=== PATIENT | female | born 1980 | race Caucasian/White ===

== ENCOUNTER → 2023-10-26 14:57 | Outpatient (REF) | payer OTHER, SELFPAY | LOC: HWWDC 14:57 | PROVIDERS: ATTENDING PHYSICIAN Nurse Practitioner Adult Health; FAMILY PHYSICIAN Nurse Practitioner Family | DX: Z12.31 Encounter for screening mammogram for malignant neoplasm of breast (principal) | CPT/HCPCS: 77063; 77067 ==

== ENCOUNTER 2023-11-15 09:12 | Emergency (ER) | payer OTHER, SELFPAY ==
[2023-11-15 09:14] VITALS: BP 151/95
--- NOTE | 2023-11-15 09:39 | ED.GENMED ---
History of Present Illness
General
Chief Complaint: Musculo-Skeletal Complaint
Source: patient
Time Seen by Provider: 11/15/23 09:34
Travel History
Have you had any contact with someone who has COVID-19?: No
Do you have any symptoms of coronavirus? Fever > 100 degrees, chills, cough, shortness of breath, sore throat, loss of taste or smell, muscle aches, or headache?: No
History of Present Illness
History of Present Illness:
43-year-old female with past medical history of lupus presenting emergency department for evaluation after she was walking on her stairs when she got startled by a spider, stepped backwards and felt a pulling sensation in her left gastrocnemius and
has had pain and difficulty ambulating since. Patient was concern for possible Achilles tendon injury and due to the difficulty ambulating decided to come to the ER for further evaluation. She denies any previous history of injury. no other
concerns at this time.
Past History
Past History
ED Past Medical History: Other (autoimmune problems, currently being worked up for scleroderma), Other (Frequent UTIs) and Other (ADHD, anxiety, Raynaud's)
ED Past Surgical History: Other ([place] teeth)
Social History
Tobacco: Non-smoker
Alcohol: Occasional
Drug: None
Personal:
Living: with family
Employment: Employed
Family History
Family History: Other
Review of Systems
Review of Systems
All Other Systems: ROS reviewed and negative except as documented in HPI and ROS
Phy Exam
Physical Exam
Physical Exam:
GENERAL: Alert , in no apparent distress
EYE: conjunctiva clear
Head: Normocephalic atraumatic
NECK: Supple,
ENT: mmm.
LUNGS: no acute respiratory distress
NEUROLOGICAL: Alert and oriented
SKIN: Warm and dry, skin intact.
MUSCULOSKELETAL: Left lower extremity: No obvious deformity, erythema, edema, ecchymosis, abrasions or lacerations. Patient is able to plantar and dorsiflex but does have increased pain when plantar flexing. She has tenderness over the mid
gastrocnemius to palpation. Easily palpable pedal and tibial pulses. Cap refill less than 2 seconds and sensation is grossly intact to light touch. Calcaneal tendon is intact and without any laxity
PSYCH: Normal and appropriate interaction.
Scores
Heart Failure Risk
Heart Failure Risk Score: Not Applicable
Heart Score for Chest Pain Patients
STEMI patient?: Not applicable
Withdrawal Assessment of Alcohol
Withdrawal Assessment Completed?: Not applicable
Course
Orders/Labs/Results
Orders:
Orders
11/15/23 09:39
Matias Wrap Left-Treatment ONCE
Crutches-Treatment ONCE
Ibuprofen [Motrin] 600 mg PO NOW STA
Vital Signs
Initial and Last Documented VS:
Initial Vital Signs
Temp Pulse Resp BP Pulse Ox
98.4 F 94 16 151/95 98
11/15/23 09:14 11/15/23 09:14 11/15/23 09:14 11/15/23 09:14 11/15/23 09:14
Last Documented Vital Signs
Temp Pulse Resp BP Pulse Ox
98.4 F 94 16 151/95 98
11/15/23 09:14 11/15/23 09:14 11/15/23 09:14 11/15/23 09:14 11/15/23 09:14
MDM/Problems Addressed
Differential Diagnosis Includes:
Gastrocnemius strain, calcaneal tendon rupture, no concern for DVT
MDM/Problems Addressed:
43-year-old female present emergency department for evaluation following injury to her left calf while walking on stairs. Symptoms and presentation is most consistent with a strain of the musculature of the calf. I did advise the patient to take
NSAIDs as needed for pain, will wrap with an Matias wrap for compression, ice and elevation also advised. Information for orthopedics to be provided. Patient was also provided with crutches to help her ambulate easier.
*Pulse Oximetry
Patient hypoxic: no
*Critical Care Note
Total Time (30-74mins, 75-104mins- exclusive of procedures): Not Applicable
ED Attending Note
-
Portions of this chart may have been created with voice recognition software.� Occasional wrong word or��sound alike� substitutions may have occurred due to the inherent limitations of voice recognition software.
Discharge Plan
Departure
Patient Disposition: Home (Routine Discharge)
Date of Disposition: 11/15/23
Time of Disposition: 09:39
Patient with high blood pressure during this ER visit?: Yes
Discharge Problem:
Strain of left calf muscle
Instructions: Lower Extremity Muscle Strain (DC)
Prescriptions:
No Action
Lactobac 2-Bifido 1-S. therm [High Potency Probiotic] 1 CAP capsule
1 cap PO DAILY
Cbd Oil
25 - 30 ml PO HSPRN PRN (Reason: insomnia)
Magnesium
1 tab PO DAILY
ipratropium-albuterol 3 ML solution for nebulization
3 ml inhalation R Q4HPRN PRN (Reason: shortness of breath/wheezing) Qty: 1 0RF
promethazine-codeine 5 ML syrup
5 ml PO Q4HPRN PRN (Reason: severe cough) Qty: 60 0RF
montelukast 10 MG tablet
10 mg PO QPM Qty: 30 0RF
prednisone 10 MG tablet
10 mg PO DAILY Qty: 120 0RF
Rx Instructions:
take 5 tabs (50 mg) daily x 4 days, 40 mg daily x 4 days, 30 mg daily x 4 days, 20 mg daily x 4 days, 10 mg daily x 4 days then stop
benzonatate 100 MG capsule
100 mg PO TID Qty: 21 0RF
budesonide 0.5 MG/2 ML suspension for nebulization
0.5 mg inhalation R BID Qty: 1 0RF
Referrals:
Sherwin Feng MD [Active] - (Ortho)
Interventions
Interventions:
*Risk Screen - Suicide Last Done: 11/15/23 09:40
*General Assessment Last Done: 11/15/23 09:40
*Neglect/Abuse Screening Last Done: 11/15/23 09:40
ED- Fall Risk Assessment Last Done: 11/15/23 09:40
*ED COVID-19 Vaccine History Last Done: 11/15/23 09:14
ED-Musculoskeletal Assessment Last Done: 11/15/23 09:40
[2023-11-15] MEDS: MOTRIN 600 MG PO (09:51)
--- NOTE | 2023-11-15 10:00 | EDRN ---
Reviewed discharge instructions with patient. Verbalized understanding. Demonstrated proper use of crutches.
[2023-11-15 10:12] VITALS: BP 151/93
== END 2023-11-15 10:10 | disposition home or self-care (01) ==
LOC: EMR 09:12
PROVIDERS: EMERGENCY PHYSICIAN Emergency Medicine; FAMILY PHYSICIAN Nurse Practitioner Family
DX: S86.112A Strain of other muscle(s) and tendon(s) of posterior muscle group at lower leg level, left leg, initial encounter (principal); Y93.01 Activity, walking, marching and hiking; Z87.440 Personal history of urinary (tract) infections
CPT/HCPCS: 99282

== ENCOUNTER → 2024-06-16 15:14 | Outpatient (REF) | payer OTHER, SELFPAY | LOC: HWRAD 15:14 | PROVIDERS: ATTENDING PHYSICIAN Physician Assistant; FAMILY PHYSICIAN Nurse Practitioner Family | DX: J32.8 Other chronic sinusitis (principal) | CPT/HCPCS: 70486 ==

== ENCOUNTER → 2024-07-02 15:48 | Outpatient (REF) | payer OTHER, SELFPAY | LOC: HWRAD 15:48 | PROVIDERS: ATTENDING PHYSICIAN Nurse Practitioner Family | DX: J40 Bronchitis, not specified as acute or chronic (principal) | CPT/HCPCS: 71046 ==

== ENCOUNTER → 2024-07-11 15:48 | Outpatient (REF) | payer OTHER, SELFPAY | LOC: HWRCS 15:48 | PROVIDERS: ATTENDING PHYSICIAN Nurse Practitioner Family | DX: R07.89 Other chest pain (principal); R00.0 Tachycardia, unspecified | CPT/HCPCS: 93306 ==

== ENCOUNTER → 2024-08-13 16:31 | Outpatient (REF) | payer OTHER, SELFPAY | LOC: HWRAD 16:31 | PROVIDERS: ATTENDING PHYSICIAN Nurse Practitioner Family | DX: R05.1 Acute cough (principal) | CPT/HCPCS: 71046 ==

== ENCOUNTER 2024-08-25 15:42 | Inpatient (IN) | payer OTHER, SELFPAY ==
[2024-08-25] VITALS (13 sets, daily range): BP systolic 124–167; BP diastolic 66–106; BMI 31.1
[2024-08-25] MEDS: DECADRON 10 MG IV ×2 (08:38→13:49)
[2024-08-25 08:46] LABS: % Basophils 0.3 % (0-2); % Eosinophils 6.5 % (0-6); % Immature Granulocytes 0.3 % (0-0.5); % Lymphocytes 13.1 % (20.5-51.1); % Monocytes 11.8 % (1.7-9.3); Absolute Eosinophils 0.4 10^3/uL (0-0.7); Absolute Lymphocytes 0.8 10^3/uL (1.2-3.4); Absolute Monocytes 0.7 10^3/uL (0.1-0.6); Absolute Neutrophils 4.3 10^3/uL (1.4-6.5); Hematocrit 34.8 % (37.0-47.0); Hemoglobin 11.7 g/dL (12.0-16.0); Mean Corp Hgb Conc. 33.6 g/dL (33.0-37.0); Mean Corpuscular Hgb 30.9 pg (27.0-31.0); Mean Corpuscular Volume 91.8 fL (81.0-99.0); Mean Platelet Volume 8.7 fL (7.4-10.4); Nucleated Red Blood Cells % 0 %; Platelet Count 216 10^3/uL (130-400); Red Blood Cell Count 3.79 10^6/uL (4.20-5.40); Red Cell Dist. Width 12.9 % (11.5-14.5); White Blood Cell Count 6.3 10^3/uL (4.8-10.8)
--- NOTE | 2024-08-25 09:07 | ED.GENMED ---
History of Present Illness
General
Chief Complaint: Throat Problem
Source: patient
Exam Limitations: none
Time Seen by Provider: 08/25/24 08:11
Nursing documentation reviewed up to this point in time: agreed with
History of Present Illness
History of Present Illness:
44-year-old female past medical history of lupus scleroderma autoimmune disorder presenting to the emergency department today with concerns of left-sided jaw and neck swelling difficulty swallowing over the past day or so has had some ongoing
swelling to the lymph nodes of the left side of the neck has been on an intermittent antibiotics most recently until 2 weeks ago on doxycycline via ENT. Denies any chest pain shortness of breath currently, no nausea vomiting or fevers today.
Past History
Past History
ED Past Medical History: Other (autoimmune problems, currently being worked up for scleroderma), Other (Frequent UTIs) and Other (ADHD, anxiety, Raynaud's)
ED Past Surgical History: Other ([place] teeth)
Social History
Tobacco: Non-smoker
Alcohol: Occasional
Drug: None
Personal:
Living: with family
Employment: Employed
Family History
Family History: Other
Review of Systems
Review of Systems
Allergies reviewed?: Yes
All Other Systems: ROS reviewed and negative except as documented in HPI and ROS
Phy Exam
Physical Exam
Physical Exam:
GENERAL: Alert , in no apparent distress
EYE: pupils equal and reactive
NECK: Supple, no significant adenopathy.
ENT: Swelling to the preauricular lymph node and the tonsillar lymph node some swelling below the left jaw. Posterior pharynx without acute abnormalities o/p clr, mmm.
CARDIAC: Regular rate and rhythm .
LUNGS: Clear breath sounds bilaterally, no acute respiratory distress, no wheezes/rales/rhonchi
ABDOMEN: Soft, without focal tenderness, no r/g, no cvat
NEUROLOGICAL: Alert and oriented, no focal neuro deficits
SKIN: Warm and dry, skin intact.
MUSCULOSKELETAL: No edema, well perfused.
PSYCH: Normal and appropriate interaction.
Course
Orders/Labs/Results
Orders:
Orders
08/25/24 08:26
CT Neck With Iv Contrast Urgent
Comment:
Reason For Exam: neck jaw swelling
08/25/24 08:27
Dexamethasone Sod Phosphate [Decadron] 10 mg IV NOW STA
08/25/24 08:32
Complete Blood Count/With Diff Urgent
Comprehensive Metabolic Panel Urgent
HCG, Serum Qualitative Screen Urgent
Lactic Acid Urgent
08/25/24 08:57
Add On- LAB Urgent
Tests Added?: hcg qual serum
08/25/24 09:10
Ketorolac [Toradol] 30 mg IV NOW STA
08/25/24 12:17
CefTRIAXone [Rocephin] 2,000 mg IV NOW STA
Vancomycin [Vancocin] 1,500 mg 0.9% Sodium Chloride 500 ml [Nss] 500 ml IV NOW
08/25/24 12:45
Sterile Water [Sterile Water For Injection] 20 ml .ROUTE .STK-MED
08/25/24 13:07
Dexamethasone Sod Phosphate [Decadron] 10 mg IV NOW STA
Abnormal Lab Results
08/25/24
08:32
RBC 3.79 L 10^6/uL
(4.20-5.40)
Hgb 11.7 L g/dL
(12.0-16.0)
Hct 34.8 L %
(37.0-47.0)
Absolute Lymphs (auto) 0.8 L 10^3/uL
(1.2-3.4)
Absolute Monos (auto) 0.7 H 10^3/uL
(0.1-0.6)
Lymphocytes % 13.1 L %
(20.5-51.1)
Monocytes % 11.8 H %
(1.7-9.3)
Eosinophils % 6.5 H %
(0-6)
Chloride 108 H mmol/L
(98-107)
Lactic Acid 0.5 L mmol/L
(0.7-2.0)
08/25/24 08:32
08/25/24 08:32
Vital Signs
Initial and Last Documented VS:
Initial Vital Signs
Temp Pulse Resp BP Pulse Ox
98.2 F 98 18 167/106 99
08/25/24 07:31 08/25/24 07:31 08/25/24 07:31 08/25/24 07:31 08/25/24 07:31
Last Documented Vital Signs
Temp Pulse Resp BP Pulse Ox
98.2 F 90 12 146/98 96
08/25/24 07:31 08/25/24 13:00 08/25/24 13:00 08/25/24 13:00 08/25/24 13:00
MDM/Problems Addressed
MDM/Problems Addressed:
44-year-old female presenting to the emergency department today with concerns of swelling discomfort to the left side of her neck and jaw. Worsening over the past few days has had some mild swelling to the area over the past few weeks. Has been
intermittently getting treated with antibiotics up until 2 weeks ago via ENT for different sinus issues. Here CT scan showing possible epiglottitis. Patient currently protecting airway and tolerating secretions. Plan to start IV antibiotics and
steroids. Case was discussed with ENT they will see the patient during admission. Otherwise admitted in stable condition.
*Critical Care Note
Total Time (30-74mins, 75-104mins- exclusive of procedures): Not Applicable
ED Attending Note
-
Portions of this chart may have been created with voice recognition software.� Occasional wrong word or��sound alike� substitutions may have occurred due to the inherent limitations of voice recognition software.
Discharge Plan
Departure
Patient Disposition: Admit
Date of Disposition: 08/25/24
Time of Disposition: 13:10
Admit to: Med/Surg
Admit to doctor: Alexei
Presentation/result/management discussed w/ accepting MD/DO: Hospitalist
Patient with high blood pressure during this ER visit?: No
Condition: Good
Covid-19: Not Applicable
Discharge Problem:
Acute epiglottitis
Prescriptions:
No Action
prednisone 5 mg Tablet
5 mg PO NOON
hydroxychloroquine [Plaquenil] 200 mg Tablet
200 mg PO BID
Referrals:
Arun Kohler CRNP [Family Provider] -
Interventions
Interventions:
*Risk Screen - Suicide Last Done: 08/25/24 07:31
*General Assessment Last Done: 08/25/24 08:41
*Neglect/Abuse Screening Last Done: 08/25/24 07:31
*ED COVID-19 Vaccine History Last Done: 08/25/24 07:31
ED-EENT Assessment Last Done: 08/25/24 08:40
ED- Pulmonary Assessment Last Done: 08/25/24 08:40
Discharge Date and Time
Print Language: SETSWANA
[2024-08-25 09:14] LABS: ALT (SGPT) 10 U/L (0-35); AST (SGOT) 18 U/L (14-36); Albumin 3.6 g/dl (3.5-5.0); Alkaline Phosphatase 54 U/L (38-126); Blood Urea Nitrogen 9 mg/dl (7-17); Calcium 8.7 mg/dl (8.4-10.2); Carbon Dioxide 24 mmol/L (22-30); Chloride 108 mmol/L (98-107); Estimated Creatinine Clearance > 125 ml/min; Glucose 90 mg/dl (70-99); Potassium 3.8 mmol/L (3.5-5.1); Sodium 140 mmol/L (135-145); Total Bilirubin 0.7 mg/dl (0.2-1.3); Total Protein 7.2 g/dl (6.3-8.2); eGFR > 60.00
[2024-08-25 09:15] LABS: Lactic Acid 0.5 mmol/L (0.7-2.0)
[2024-08-25 09:53] LABS: HCG, Serum Qualitative Screen Negative
[2024-08-25] MEDS: ROCEPHIN 2000 MG IV (12:50)
[2024-08-25] MEDS: VANCOCIN 530 MG IV (12:54)
--- NOTE | 2024-08-25 14:02 | HPS.HSE ---
Addendum entered and electronically signed by SHAN Bhatti 08/25/24 16:59:
Patient was seen by ENT at bedside who feels she has viral URI and not epiglottitis
-He wants diet changed from n.p.o. to clears for now
Original Note:
Family Physician
-
Family Physician: SHAN Colindres
Chief Complaint
-
Sore throat x 1 week, right sided chest pain x 6 weeks, URI x 4 months
History of Present Illness
44-year-old female who states since May around she has had upper respiratory symptoms and has been treated for bronchitis with 3 rounds of doxycycline 10-day courses over the past 2 months including Levaquin 3-week dose of which she
finished 2 weeks ago. She was due to have an outpatient CT of her chest 1 week ago but they were unable to obtain an IV. This was due to complaints of 6 weeks of right sternal chest pain. She reports she did have an echo with [facility]
but she did not see a applications engineer manufacturing. She does not have any cardiac family history. She does report history of scleroderma, lupus and possible Srjogens. She reported a fever over the past week with Tmax of 103.7F days ago. She states that is when
she started having difficulty and painful swallowing in the lower part of her esophagus along with swelling submandibular into her neck. She is able to talk without difficulty and swallow own secretions. She reports she has been eating crackers
and drinking thin liquids. Her CT of her neck here showed thickening of the epiglottis suggesting possible epiglottitis with bilateral cervical, submandibular and submental lymphadenopathy. She follows with Dr. Price at [facility].
Medical History
Past Medical History
Past Medical History: Reports Other
Additional Past Medical History:
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
Past Surgical History: Reports Other
Additional Past Surgical History:
[place] teeth extraction
Social History
Tobacco: Non-smoker
Alcohol: Occasional (Patient drinks 3-5 drinks a week beer or whiskey's hours)
Personal:
Living: With Family ( [place])
Employment: Employed
Family History
Family History: Other (No family history CAD mother history of lupus from pneumonia age 57 also had brain tumor from lupus treatment)
Allergies / Home Medications
Allergies reflects when Allergies were last updated in [employer].
Home Medications with original date entered in [employer]
Allergy/Medication List:
Allergies
Allergy/AdvReac Type Severity Reaction Status Date / Time
penicillin V Allergy Severe Rash, Verified 08/25/24 07:35
Swelling,
itching;
tolerated
amoxicillin
Sulfa (Sulfonamide Allergy Hives Verified 08/25/24 07:35
Antibiotics)
doxycycline AdvReac Severe Nausea / Verified 08/25/24 07:35
Vomiting
Home Medications
hydroxychloroquine 200 mg tablet (Plaquenil) 200 mg PO BID 08/25/24
prednisone 5 mg tablet 5 mg PO NOON 08/25/24
Review of Systems
-
History Source: Patient
A 12 point ROS was completed and negative except as noted: Yes
Constitutional: Reports Fever and Chills; Denies Fatigue
EENT: Reports Sore Throat and Other (Odynophagia, swelling submandibular into neck, speech is clear, able to handle own secretions); Denies Mouth Pain, Mouth Swelling or Runny Nose
Respiratory: Reports Trouble Breathing (Chronic cough); Denies Cough
Cardiac: Reports Chest Pain (Right sided sternal pain x 6 weeks); Denies Diaphoresis, Palpitations or Syncope
Abdomen/GI: Denies Abdominal Pain, Nausea, Vomiting, Diarrhea, Constipated, Bloody Stools or Black Stools
: Denies Dysuria, Frequency, Flank Pain, Incontinence, Difficulty Voiding or Urgency
Musculoskeletal: Denies Joint Pain, Joint Swelling or Edema
Skin: Denies Itching or Rash
Neurological: Denies Dizzy, Headache or Weakness
Endocrine: Reports No Symptoms
Hematologic/Lymphatic: Reports No Symptoms
Psych: Reports Calm
Physical Exam
Vital Signs
Vital Signs
Temp Pulse Resp BP Pulse Ox
98.2 F 87 14 146/98 97
08/25/24 07:31 08/25/24 13:45 08/25/24 13:45 08/25/24 13:00 08/25/24 13:45
Physical Exam
General: Comfortable, Conversant and Obese; No Fever or Chills
HEENT: NormoCephalic, Anicteric, Moist mucous membranes, PERRLA, [place] Conjunctivae, No Ptosis, Neck Nontender (Negative nuchal rigidity) and Other (Negative pharyngeal erythema uvula appears normal no swelling patient tolerating own secretions able
to speak without difficulty); No Pharyngeal Erythema
Respiratory: Clear; No Wheezes or Rales
Cardiac: S1/S2 and Regular Rhythm; No Murmur, Rub, Gallop or Peripheral Edema
Breast: Deferred by me
GI: Soft, Non Tender, Non Distended, Normal Bowel Sounds and No Hepatosplenomegaly
Rectal: Deferred by Provider
Genito-urinary: Deferred by me
Musculoskeletal: No Clubbing, No Cyanosis and No Edema
Skin: Warm and Dry; No Rash or Jaundice
Neuro: AO x 3, No Motor Deficits, Nonfocal/grossly intact, No Sensory Deficits and Other (Swelling submandibular into anterior neck); No Slurred Speech, Facial Droop, Tremors or Sedated
Hematologic/Lymphatic: Lymphadenopathy (Anterior cervical chain)
Psych: Calm
Laboratory Results
-
08/25/24 08:32
08/25/24 08:32
Laboratory Results
Lactic Acid 0.5 mmol/L (0.7-2.0) L 08/25/24 08:32
Total Bilirubin 0.7 mg/dl (0.2-1.3) 08/25/24 08:32
AST 18 U/L (14-36) 08/25/24 08:32
ALT 10 U/L (0-35) 08/25/24 08:32
Alkaline Phosphatase 54 U/L (38-126) 08/25/24 08:32
Impression/Plan
-
Impression/plan:
Admit to IMU
#Acute epiglottitis
Afebrile, 98.2F, WBC 6.3
BP 146/98, 97% RA
-Consult ENT-ENT on-call Dr. Jolly was made aware by ER, patient did see Dr. Price in the office
-IV Decadron 10 mg given at 8 AM and 10 mg at 1 PM
-Continue Decadron 4 mg every 12 hours, will add IV Protonix 40 mg daily
-IV Rocephin 2000 mg given in ER will continue Rocephin 1 g daily, IV vancomycin started in ER will continue
-Head of bed elevated to 45 degrees at all times
-Monitor ability to tolerate secretions
-Consult Speech swallow
-N.p.o. sips water and ice chips
-Check strep, COVID, influenza
-IV NSS 100 cc/h
-IV Toradol mild pain, IV morphine moderate/severe pain
-IV Zofran as needed nausea
-As needed Benadryl due to some mild facial and neck hives with vancomycin
-Consult PT/OT/case management consult
-Follow CBC, CMP
CT neck with IV contrast: There is slight thickening of the epiglottis suggesting possible epiglottitis
There is bilateral cervical, submandibular and submental lymphadenopathy
#Ongoing Right sternal chest pain of unclear etiology possibly due to chronic bronchitis/cough musculoskeletal
URI since May completed 3 rounds of 10-day course doxycycline over the past 2 months including Levaquin 3-week course that she finished 2 weeks ago
Had outpatient echo at [facility] 2 weeks ago
-Has prescription for CT of chest as outpatient they were unable to get an IV line 2 days ago
-We will obtain her CT of the chest with contrast tomorrow as she had IV contrast for CT neck today
-Echo was ordered by [facility] cardiology
2D echo 07/11/2024: EF 55-60%, normal LVS LVSF, no wall abnormalities, normal diastolic function
#Autoimmune disease/scleroderma/lupus
-Patient on Plaquenil 200 mg twice daily
#GERD Hx
-No current medications
-Will add IV Protonix 40 mg daily given above need for IV steroids
#Class I obesity due to excess calorie consumption�BMI 31
Affects all aspects of care
Weight loss recommended
DVT prophylaxis
Subcu Lovenox
Full code
--- NOTE | 2024-08-25 15:02 | W.PN.UPDATE ---
Update Note
Progress Note Update
44-year-old female past medical history of scleroderma, lupus, Sjogren's, presenting with 103 temperature, sore throat and difficulty swallowing and submandibular swelling starting today. She has been having sharp chest pain and cough and shortness
of breath for the past several months not improving despite multiple courses of antibiotics.
CT neck shows slight thickening of the epiglottis suggesting possible epiglottitis. There is bilateral cervical, submandibular, submental lymphadenopathy.
Check COVID and influenza. Check chest x-ray. Vancomycin/ceftriaxone started for epiglottitis. ENT consulted. N.p.o., sips of clears. Patient is supposed to have outpatient CT scan of chest to evaluate chronic chest pain/cough and shortness of
breath. Check CT chest tomorrow.
[2024-08-25 15:21] LABS: COVID-19 Antigen Negative (Negative)
[2024-08-25] MEDS: PROTONIX IV 40 MG IV (16:23)
[2024-08-25] MEDS: NSS (PRESERVATIVE FREE) 10 ML IV (16:23)
[2024-08-25] MEDS: NSS 1000 IV (16:23)
--- NOTE | 2024-08-25 16:29 | PHA.VAN.IN ---
Assessment
- Assessment
Renal Function: Appears similar to baseline
Concomitant Antimicrobials: ceftriaxone
AUC Dosing Plan
- Dosing Variables
Dosing Weight (kg): 84.7
Dosing CrCl (ml/min): 125
Vd coefficient (L/kg): 0.7
- Empiric Dosing
Initial / Loading Dose: vanc 1500mg + 500mg split loading dose
Maintenance Regimen: vanc 1500mg Q12H
Estimated AUC (mcg*h/mL): 506
Estimated Peak (mcg*h/mL): 34.8
Estimated Trough (mcg/ml): 11.2
Estimated Half Life (H): 6.4
- Monitoring
No levels ordered at this time: consider levels in next few days
Pharmacokinetics Vancomycin I
- -
Patient Age: 44
Patient Sex: Female
Vancomycin Day #: 1
Indication: Eye Or Ent Infection
Requesting Provider: Noemi Kenyon
Pertinent Antimicrobial Allergies:
doxycycline (N/V)
sulfa (hives)
penicillin (rash, swelling, itching; tolerated amoxicillin
Height / Weight:
Height 5 ft 5 in
Actual Weight 84.7 kg
- Vital Signs / Lab Results
Temp Pulse Resp BP Pulse Ox
98.2 F 87 11 127/82 96
08/25/24 07:31 08/25/24 15:45 08/25/24 15:45 08/25/24 14:00 08/25/24 15:45
Lab Results - Hematology
08/25/24
08:32
WBC 6.3
Lab Results - Chemistry
08/25/24
08:32
BUN 9
Creatinine 0.6
Estimated Creat Clear > 125
Albumin 3.6
08/25/24
08:32
Lactic Acid 0.5 L
Microbiology Results
12/16/24 15:02 Influenza Types A & B (HARSHAD) - Final
Nasal Swab Negative for Influenza A & B, NAAT
Negative results must be combined with clinical observations
and patient history.
Nucleic Acid Amplification test (NAAT)performed on the
[employer] platform.
[2024-08-25] MEDS: BENADRYL 25 MG IV (17:02)
[2024-08-25] MEDS: VANCOCIN HCL 500 MG 100 IV (17:03)
--- NOTE | 2024-08-25 17:15 | CON.MD ---
Consultation - Medical
-
Patient seen and evaluated at the bedside.
Full consult dictated.
A/M-37-mwcg-old female with viral pharyngitis.
-Patient well-known to me as an outpatient.
-Has a recent history of sinusitis treated with antibiotics.
-Now with significant lymphadenopathy, congestion, sore throat, fevers.
-This is more consistent with a viral etiology.
-Patient does have some mild upper airway edema but no evidence of acute epiglottitis.
-She is feeling better with steroids, would continue.
-Continue antibiotics as well for now.
-Patient with mild sinus congestion noted on neck CT scan.
-Awaiting chest CT scan tomorrow.
-Hopefully patient will improve over the next 48 hours and then can go home on oral antibiotics and steroids.
-Her recurrent illnesses are likely complicated by her immunosuppressed status. Some of her medications have been stopped recently. She is currently on Plaquenil and prednisone 5 mg daily. Hopefully this will allow her immune system to get
stronger and prevent further infections in the future.
[2024-08-25] MEDS: LOVENOX 40 MG SC (18:31)
[2024-08-25] MEDS: PLAQUENIL 200 MG PO (21:14)
[2024-08-26] VITALS (10 sets, daily range): BP systolic 120–148; BP diastolic 68–95; BMI 30.6
[2024-08-26] MEDS: NSS 1000 IV ×2 (02:16→14:20)
[2024-08-26] MEDS: BENADRYL 25 MG IV ×2 (05:38→17:08)
[2024-08-26] MEDS: VANCOCIN 530 MG IV ×2 (05:44→17:05)
[2024-08-26 06:35] LABS: % Immature Granulocytes 0.4 % (0-0.5); % Lymphocytes 11.7 % (20.5-51.1); % Monocytes 5.9 % (1.7-9.3); Absolute Lymphocytes 0.6 10^3/uL (1.2-3.4); Absolute Monocytes 0.3 10^3/uL (0.1-0.6); Absolute Neutrophils 4.4 10^3/uL (1.4-6.5); Hematocrit 35.1 % (37.0-47.0); Hemoglobin 11.9 g/dL (12.0-16.0); Mean Corp Hgb Conc. 33.9 g/dL (33.0-37.0); Mean Corpuscular Hgb 30.8 pg (27.0-31.0); Mean Corpuscular Volume 90.9 fL (81.0-99.0); Mean Platelet Volume 9.3 fL (7.4-10.4); Nucleated Red Blood Cells % 0 %; Platelet Count 246 10^3/uL (130-400); Red Blood Cell Count 3.86 10^6/uL (4.20-5.40); Red Cell Dist. Width 12.7 % (11.5-14.5); White Blood Cell Count 5.4 10^3/uL (4.8-10.8)
[2024-08-26 07:07] LABS: ALT (SGPT) < 10 U/L (0-35); AST (SGOT) 22 U/L (14-36); Albumin 3.2 g/dl (3.5-5.0); Alkaline Phosphatase 40 U/L (38-126); Blood Urea Nitrogen 8 mg/dl (7-17); Calcium 8.5 mg/dl (8.4-10.2); Carbon Dioxide 20 mmol/L (22-30); Chloride 110 mmol/L (98-107); Estimated Creatinine Clearance > 125 ml/min; Glucose 134 mg/dl (70-99); Potassium 4.3 mmol/L (3.5-5.1); Sodium 140 mmol/L (135-145); Total Bilirubin 0.5 mg/dl (0.2-1.3); eGFR > 60.00
[2024-08-26] MEDS: NSS (PRESERVATIVE FREE) 10 ML IV ×2 (07:57→19:24)
--- NOTE | 2024-08-26 07:59 | PHA.VAN.FU ---
Vancomycin Assessment / Plan
- Assessment
Renal Function: Stable
WBC's are: WNL
In the past 24 hrs, patient has been: Afebrile
Concomitant Antimicrobials: ceftriaxone
- Dosing Plan
Continue: Vanc 1500mg Q12H - slow infusion rate to 10mg/min
Dosing Comments: patient appears to have developed infusion reaction - slow rate
- Monitoring Plan
No level(s) ordered at this time: consider levels in next few days
- Follow Up
Pharmacy will continue to follow.
Vancomycin Follow UP
- -
Patient Age: 44
Patient Sex: Female
Vancomycin Day #: 2
Indication: Eye Or Ent Infection
Requesting Provider: Noemi Kenyon
Pertinent Antimicrobial Allergies:
doxycycline (N/V)
sulfa (hives)
penicillin (rash, swelling, itching; tolerated amoxicillin)
Height / Weight:
Height 5 ft 5 in
Actual Weight 84.7 kg
Pertinent Past Medical History: BMI ~31
- Vital Signs / Lab Results
Temp Pulse Resp BP Pulse Ox
97.8 F 77 20 129/82 98
08/26/24 00:00 08/26/24 07:00 08/26/24 00:00 08/26/24 06:00 08/26/24 07:00
Lab Results - Hematology
08/25/24 08/26/24
08:32 05:34
WBC 6.3 5.4
Lab Results - Chemistry
08/25/24 08/26/24
08:32 05:34
BUN 9 8
Creatinine 0.6 0.5 L
Estimated Creat Clear > 125 > 125
Albumin 3.6 3.2 L
08/25/24
08:32
Lactic Acid 0.5 L
Microbiology Results
08/25/24 19:11 Streptococcus Rapid Screen - Final
Throat/Pharynx Rapid Strep Screen (Group A) Negative
08/25/24 15:02 Influenza Types A & B (HARSHAD) - Final
Nasal Swab Negative for Influenza A & B, NAAT
Negative results must be combined with clinical observations
and patient history.
Nucleic Acid Amplification test (NAAT)performed on the
[employer] platform.
[2024-08-26] MEDS: PROTONIX IV 40 MG IV ×2 (08:01→19:24)
[2024-08-26] MEDS: PLAQUENIL 200 MG PO ×2 (08:38→19:23)
[2024-08-26] MEDS: DECADRON 4 MG IV ×2 (09:04→19:23)
[2024-08-26 09:11] LABS: Troponin I < 0.012 ng/ml
--- NOTE | 2024-08-26 09:59 | PTOTSP ---
Dysphagia Evaluation
Patient admitted with acute pharyngitis. Swallowing is functional to resume a regular, thin liquid diet with precautions below. Patient with baseline dysphagia risk factors (i.e., scleroderma, Sjogren's).
Recommend:
1. Regular, Thin Liquids
2. Strategies: upright to 90 degrees, pick soft/moist foods, liquid wash as needed, reflux precautions
3. Medications as best tolerated
4. Will sign off. Please reconsult as appropriate.
--- NOTE | 2024-08-26 11:53 | W.PN.HOSP.TC ---
Today's Communication/Plan
-
Continue steroids
AB
Sputum CX
Assessment / Plan
Assessment / Plan
44-year-old female with sore throat for 1 week right-sided chest pain for 6 weeks. She was treated with 3 rounds of doxycycline over the past 2 months and Levaquin 3-week course. She was supposed to get a CT of the chest as outpatient also had an
echo. Patient is able to eat and swallow.
Echo 07/11/2024-normal LV size, wall thickness and systolic function. No regional wall motion abnormalities. EF 55-60%. Normal diastolic function.
Neck CT-slight thickening of the epiglottis suggesting possible epiglottitis. Bilateral cervical, submandibular and submental lymphadenopathy.
Throat- no edema of Uvula, pharyngitis
CVS: S1-S2 normal
Chest: CTA B/L
Abdomen: Soft, NT , Bowel sounds present
Extremities: No edema
# Sore throat
Epiglottitis per CAT scan
Patient evaluated by ENT MEENA Kraus, viral pharyngitis
Decadron given in the ER,Continue steroids and taper.
Continue antibiotics
Sinus congestion on neck CT
# Chest pain-likely secondary to acid reflux given patient's scleroderma, history of GERD not being on PPI, being on steroids and her BMI.
Obtain CT chest as planned
EKG and troponin to rule out other etiologies
# Sjogren syndrome/scleroderma
On Plaquenil 200 mg twice daily and prednisone 5 mg at noon
Add PPI
Head of bed elevation
Sees Dr.Kevin Beal
# GERD-add PPI
# Obesity with a BMI of 31
# Alcohol use 3 to 5 days a week
# DVT prophylaxis-Lovenox
# Full code
sent a message for Rheumatology Dr.Kevin Beal
Part of this note was created using voice recognition system. Occasional wrong word or��sound alike� substitutions may have inadvertently occurred due to the inherent limitations of voice recognition software. If noted kindly bring it to my
attention for correction.
Seen earlier, late documentation
Anticipated Discharge: Within 24 hours
Subjective/Interval History
-
Date of Service: August 26, 2024
Objective Data
-
Labs:
Laboratory Results
08/26/24
05:34
WBC 5.4
Hgb 11.9 L
Hct 35.1 L
Plt Count 246
Sodium 140
Potassium 4.3
Chloride 110 H
Carbon Dioxide 20 L
BUN 8
Creatinine 0.5 L
Glucose 134 H
Calcium 8.5
Total Bilirubin 0.5
AST 22
ALT < 10
Alkaline Phosphatase 40
Vital Signs:
Vital Signs
Temp Pulse Resp BP Pulse Ox
97.8 F 95 20 140/92 97
08/26/24 00:00 08/26/24 10:00 08/26/24 00:00 08/26/24 10:00 08/26/24 08:00
I&O
08/25/24 08/26/24 08/27/24
06:59 06:59 06:59
Intake Total 1000 / 1000
Balance 1000 / 1000
--- NOTE | 2024-08-26 11:54 | W.PN.UPDATE ---
Update Note
Progress Note Update
EKG and CR PE Study reviewed.
Also reviewed patient's case with her outpatient medicaid billing specialist Dr. Azar Beal.
She was on CellCept which was stopped recently because of her recurrent infections
Reviewed patient's hospital status with Dr. Beal.
Agrees with a steroid taper.
She has an appointment with him on September 16 and can remain on the taper to a slightly higher dose than her baseline
[2024-08-26] MEDS: ROCEPHIN 1000 MG IV (12:01)
[2024-08-26] MEDS: STERILE WATER FOR INJECTION 10 ML IV (12:01)
--- NOTE | 2024-08-26 12:19 | PTOTSP ---
Chart reviewed, spoke with nurse. The patient remains independent and has had no changes in function related to her current medical issue. No PT needs at this time, will sign off. Discussed with the patient, who is aware our services are available
if needs arise.
--- NOTE | 2024-08-26 12:37 | W.PN.ENT ---
Today's Communication
-
Patient improving.
Continue IV steroids and antibiotics.
Advance diet.
May be able to be discharged home tomorrow on oral medications
Impression / Plan
-
A/P- 44-year-old female with viral URI/pharyngitis.
-Patient seems to be improved today.
-Likely result of palpitation of steroids and possibly antibiotics.
-Awaiting sputum culture results.
-Continue steroids and antibiotics for now.
-Advance diet to regular.
-Patient can possibly be discharged tomorrow on oral medication if she remains stable.
Subjective Data
-
Patient did well overnight.
More comfortable this morning.
Tolerating secretions, swallowing well, tolerating clear liquid diet.
Less throat neck pain overall.
No fevers or chills.
Denies any respiratory distress.
Still weak and tired overall.
Objective Data
-
Vital Signs
Temp Pulse Resp BP Pulse Ox
97.8 F 93 20 146/95 97
08/26/24 00:00 08/26/24 12:00 08/26/24 00:00 08/26/24 12:00 08/26/24 12:00
Intake & Output
08/25/24 08/26/24 08/27/24
06:59 06:59 06:59
Intake:
IV fluids (Total) 1000 / 1000
Nss 1,000 ml @ 100 mls/hr IV . 1000 / 1000
Q10H TITI Rx#:[id number]
Other:
Number of unmeasured voidings 2
Lab Results
08/26/24 05:34
08/26/24 05:34
Calcium 8.5 mg/dl (8.4-10.2) 08/26/24 05:34
Total Bilirubin 0.5 mg/dl (0.2-1.3) 08/26/24 05:34
AST 22 U/L (14-36) 08/26/24 05:34
ALT < 10 U/L (0-35) 08/26/24 05:34
Alkaline Phosphatase 40 U/L (38-126) 08/26/24 05:34
Physical Exam
-
Awake, alert, oriented, no acute distress.
Breathing comfortably, no stridor.
Nasal cavity with mild mucosal edema, otherwise clear.
Oral cavity and oropharynx unremarkable, no significant erythema or edema present.
Neck exam with significant cervical lymphadenopathy, mild to moderately tender. No fluctuance present.
Data Reviewed
-
Radiology Results: Report Reviewed and Image Reviewed ( CT neck and chest reviewed. Chest CT today shows mild to moderate hilar lymphadenopathy.)
Micro Results: Report Reviewed ( Rapid strep negative. Flu negative. COVID-negative. Await sputum results.)
[2024-08-26] MEDS: LOVENOX 40 MG SC (17:05)
--- NOTE | 2024-08-26 17:28 | PTCARENOTE ---
Pt given Benadryl 25mg IV prior to Vancomycin IV.
[2024-08-27] MEDS: NSS 1000 IV (02:28)
[2024-08-27 03:04] VITALS: BP 135/86
[2024-08-27] MEDS: BENADRYL 25 MG IV (05:42)
[2024-08-27] MEDS: VANCOCIN 530 MG IV (05:42)
[2024-08-27 07:30] VITALS: BP 160/103
[2024-08-27 07:43] LABS: % Immature Granulocytes 0.3 % (0-0.5); % Lymphocytes 14.8 % (20.5-51.1); % Monocytes 5.2 % (1.7-9.3); % Neutrophils 79.7 % (42.2-75.2); Absolute Monocytes 0.4 10^3/uL (0.1-0.6); Absolute Neutrophils 5.6 10^3/uL (1.4-6.5); Hematocrit 33.2 % (37.0-47.0); Hemoglobin 11.2 g/dL (12.0-16.0); Mean Corp Hgb Conc. 33.7 g/dL (33.0-37.0); Mean Corpuscular Hgb 31.4 pg (27.0-31.0); Mean Platelet Volume 8.9 fL (7.4-10.4); Nucleated Red Blood Cells % 0 %; Platelet Count 207 10^3/uL (130-400); Red Blood Cell Count 3.57 10^6/uL (4.20-5.40); Red Cell Dist. Width 12.9 % (11.5-14.5)
[2024-08-27 08:17] LABS: Albumin 2.8 g/dl (3.5-5.0); Carbon Dioxide 22 mmol/L (22-30); Chloride 110 mmol/L (98-107); Estimated Creatinine Clearance > 125 ml/min; Potassium 3.9 mmol/L (3.5-5.1); Sodium 138 mmol/L (135-145); Total Bilirubin 0.2 mg/dl (0.2-1.3); eGFR > 60.00
[2024-08-27] MEDS: DECADRON 4 MG IV (08:21)
[2024-08-27] MEDS: NSS (PRESERVATIVE FREE) 10 ML IV (08:23)
[2024-08-27] MEDS: PLAQUENIL 200 MG PO (08:23)
[2024-08-27] MEDS: PROTONIX IV 40 MG IV (08:23)
[2024-08-27 08:49] LABS: ALT (SGPT) < 10 U/L (0-35); AST (SGOT) 14 U/L (14-36); Alkaline Phosphatase 42 U/L (38-126); Blood Urea Nitrogen 8 mg/dl (7-17); Calcium 8.1 mg/dl (8.4-10.2); Glucose 116 mg/dl (70-99); Total Protein 6.2 g/dl (6.3-8.2)
[2024-08-27 11:49] VITALS: BP 155/99
[2024-08-27] MEDS: STERILE WATER FOR INJECTION 10 ML IV (12:49)
[2024-08-27] MEDS: ROCEPHIN 1000 MG IV (12:50)
--- NOTE | 2024-08-27 14:34 | W.PN.HOSP.TC ---
Addendum entered and electronically signed by Preston Oneill MD 08/27/24 15:08:
discussed with ENT. Okay for discharge.
More than 30 minutes spent in discharge including
Final examination of the patient
Summarizing hospital stay
Instructions for continuing care to all relevant caregivers
Preparation of discharge records, prescriptions, and referral forms
Total time spent (in minutes): 32 min
Original Note:
Today's Communication/Plan
-
Switch steroids to p.o.
Await ENT evaluation
Possible discharge soon.
Assessment / Plan
Assessment / Plan
44-year-old female with sore throat for 1 week right-sided chest pain for 6 weeks. She was treated with 3 rounds of doxycycline over the past 2 months and Levaquin 3-week course. She was supposed to get a CT of the chest as outpatient also had an
echo. Patient is able to eat and swallow.
Echo 07/11/2024-normal LV size, wall thickness and systolic function. No regional wall motion abnormalities. EF 55-60%. Normal diastolic function.
Neck CT-slight thickening of the epiglottis suggesting possible epiglottitis. Bilateral cervical, submandibular and submental lymphadenopathy.
Throat- no edema of Uvula, pharyngitis appears to be better
CVS: S1-S2 normal
Chest: CTA B/L
Abdomen: Soft, NT , Bowel sounds present
Extremities: No edema
# Sore throat
Epiglottitis per CAT scan
Patient evaluated by ENT MEENA Kraus, viral pharyngitis
Decadron given in the ER,Continue steroids and taper.
Continue antibiotics
Sinus congestion on neck CT
# Chest pain-likely secondary to acid reflux given patient's scleroderma, history of GERD not being on PPI, being on steroids and her BMI.
Obtain CT chest as planned
EKG and troponin to rule out other etiologies
# Sjogren syndrome/scleroderma
On Plaquenil 200 mg twice daily and prednisone 5 mg at noon
Add PPI
Head of bed elevation
Sees Dr.Kevin Beal-discussed yesterday. He agrees with steroid taper.
# Patient has a call to rheumatology to see if she needs a biopsy of the lymph nodes
# GERD-add PPI
# Obesity with a BMI of 31
# Alcohol use 3 to 5 days a week
# DVT prophylaxis-Lovenox
# Full code
Discussed with rheumatology Dr.Kevin Beal yesterday
Part of this note was created using voice recognition system. Occasional wrong word or��sound alike� substitutions may have inadvertently occurred due to the inherent limitations of voice recognition software. If noted kindly bring it to my
attention for correction.
Anticipated Discharge: Within 24 hours
Subjective/Interval History
-
Date of Service: August 27, 2024
Objective Data
-
Labs:
Laboratory Results
08/27/24
07:18
WBC 7.0
Hgb 11.2 L
Hct 33.2 L
Plt Count 207
Sodium 138
Potassium 3.9
Chloride 110 H
Carbon Dioxide 22
BUN 8
Creatinine 0.6
Glucose 116 H
Calcium 8.1 L
Total Bilirubin 0.2
AST 14
ALT < 10
Alkaline Phosphatase 42
Vital Signs:
Vital Signs
Temp Pulse Resp BP Pulse Ox
98.2 F 82 18 155/99 99
08/27/24 11:49 08/27/24 11:49 08/27/24 11:49 08/27/24 11:49 08/27/24 08:26
I&O
08/26/24 08/27/24 08/28/24
06:59 06:59 06:59
Intake Total 1000 / 1000 2880 / 2880
Balance 1000 / 1000 2880 / 2880
--- NOTE | 2024-08-27 14:59 | W.PN.ENT ---
Today's Communication
-
OK to d/c.
Impression / Plan
-
A/P- 44-year-old female with viral URI/pharyngitis.
-Patient continuing to improve.
-Seems to be responding to steroids and antibiotics.
-Feels much better overall today.
-Cleared for discharge home from ENT perspective.
-Patient will take oral antibiotics and a tapering dose of prednisone.
-Patient to see her clinical staff pharmacist in early September.
-May need to explore lymph node biopsy in the future.
-Patient knows to call my office if her symptoms worsen.
Subjective Data
-
Patient continues to do less fatigue and achiness.
Denies any fevers or chills.
Tolerating regular diet without difficulty.
Denies any shortness of breath.
Objective Data
-
Vital Signs
Temp Pulse Resp BP Pulse Ox
98.2 F 82 18 155/99 99
08/27/24 11:49 08/27/24 11:49 08/27/24 11:49 08/27/24 11:49 08/27/24 08:26
Intake & Output
08/26/24 08/27/24 08/28/24
06:59 06:59 06:59
Intake:
Oral fluids 720 / 720
IV fluids (Total) 1000 / 1000 1100 / 1100
Nss 1,000 ml @ 100 mls/hr IV . 1000 / 1000
Q10H TITI Rx#:[id number]
IV piggybacks 1060 / 1060
Other:
Number of unmeasured voidings 2
Number of approximated LARGE 3
amounts of urine
Lab Results
08/27/24 07:18
08/27/24 07:18
Calcium 8.1 mg/dl (8.4-10.2) L 08/27/24 07:18
Total Bilirubin 0.2 mg/dl (0.2-1.3) 08/27/24 07:18
AST 14 U/L (14-36) 08/27/24 07:18
ALT < 10 U/L (0-35) 08/27/24 07:18
Alkaline Phosphatase 42 U/L (38-126) 08/27/24 07:18
Physical Exam
-
Awake, alert, oriented, in no acute distress.
Nasal cavity clear anteriorly.
Oral cavity and oropharynx unremarkable, no exudate or erythema present.
Neck with enlarged jugulodigastric lymphadenopathy bilaterally, relatively stable, nontender.
Remainder of exam unremarkable.
Data Reviewed
-
Micro Results: Report Reviewed
--- NOTE | 2024-08-27 15:08 | W.DS.TRANS ---
Addendum entered and electronically signed by Preston Oneill MD 08/27/24 15:20:
Dictation- [id number]
Original Note:
DC Summary - [employer]
-
Discharge Instructions:
Discharge Diagnosis/Procedures Sore throat-pharyngitis
Sjogren syndrome/scleroderma/lupus
GERD
Diet As tolerated
Activity As tolerated,No strenuous activity
Instructions:
Stand-Alone Forms:
Changes to Home Medications: Yes
Discharge Medications:
DC Medications w/original date entered in [employer]
prednisone 5 mg tablet 5 mg PO NOON 08/25/24
amoxicillin 875 mg-potassium clavulanate 125 mg tablet 1 tab PO BID ent #11 tabs 08/27/24
hydroxychloroquine 200 mg tablet (Plaquenil) 200 mg PO BID rheumatological condition #0 tabs 08/27/24
pantoprazole 40 mg tablet,delayed release (Protonix) 40 mg PO DAILY Gastrointestinal issue #30 tabs 08/27/24
prednisone 10 mg tablet See Rx Instructions .Route .COMPLEX inflammation #50 tabs 08/27/24
Home Medication Changes
Prednisone dose increased
Protonix is new
Amoxicillin is new
Pending Results: No
--- NOTE | 2024-08-27 15:26 | CM ---
Pt seen bedside. Initial assessment
Pt lives w/ spouse in a single story home- 1 step to enter
Pt is independent, denies DME use for ambulating or daily functioning
Denies SNF/VN/PT. Pt states she participated in OP rehab years ago
Address, point of contact and insurance verified
PCP: Dr. Arun Kohler
Pharmacy: [facility] ([facility]
Pt is medically stable clear for d/c
No CM needs identified at this time
Plan: Home; no needs
[2024-08-27] MEDS: DELTASONE 40 MG PO (15:37)
[2024-08-27 16:12] VITALS: BP 176/102
--- NOTE | 2024-08-27 16:35 | W.PN.UPDATE ---
Update Note
Progress Note Update
called about high BPs for pt ready for d/c. BP's started to be elevated at 7:30 AM--does not take meds as outpt--160/103, 155/99, 176/102--pt drinks daily but last drink was Sunday (seems too long for early withdrawal)--anxiety possible (stressed
about work, [employer], and discharge), also on steroids (not usually on at home.)
offered to give pt small dose of BP med to go home on (if pt agreeable)-- she declined and left-- would follow up with PCP
== END 2024-08-27 17:27 | disposition home or self-care (01) | DRG 153 ==
LOC: 4 WEST ACU 15:42
PROVIDERS: Clinical Nurse Specialist Family Health; Physician Assistant; ADMITTING PHYSICIAN Hospitalist; ATTENDING PHYSICIAN Hospitalist; EMERGENCY PHYSICIAN Student in an Organized Health Care Education/Training Program; FAMILY PHYSICIAN Nurse Practitioner Family; OTHER PHYSICIAN Otolaryngology
DX: J02.9 Acute pharyngitis, unspecified (principal); M34.9 Systemic sclerosis, unspecified; M35.00 Sjogren syndrome, unspecified; E66.09 Other obesity due to excess calories; E66.811 Obesity, class 1; Z68.31 Body mass index [BMI] 31.0-31.9, adult; Z79.899 Other long term (current) drug therapy; Z88.1 Allergy status to other antibiotic agents; Z88.0 Allergy status to penicillin; Z88.2 Allergy status to sulfonamides; K21.9 Gastro-esophageal reflux disease without esophagitis
CPT/HCPCS: 70491; 71046; 71275; 80053; 83605; 84484; 84703; 85025; 87070; 87205; 87502; 87811; 87880; 92610; 93005; 96365; 96375; 96376; 99285; Q9967

== ENCOUNTER → 2024-11-11 15:59 | Outpatient (REF) | payer OTHER, SELFPAY | LOC: HWWDC 15:59 | PROVIDERS: ATTENDING PHYSICIAN Nurse Practitioner Adult Health; FAMILY PHYSICIAN Nurse Practitioner Family | DX: Z12.31 Encounter for screening mammogram for malignant neoplasm of breast (principal) | CPT/HCPCS: 77063; 77067 ==

== ENCOUNTER 2025-02-17 06:20 | Day surgery (SDC) | payer OTHER, SELFPAY | END 2025-02-17 14:22 | disposition home or self-care (01) | LOC: GI 06:20 | PROVIDERS: ATTENDING PHYSICIAN Internal Medicine Gastroenterology | DX: R13.14 Dysphagia, pharyngoesophageal phase (principal); R12 Heartburn; K22.2 Esophageal obstruction; K44.9 Diaphragmatic hernia without obstruction or gangrene; I73.00 Raynaud's syndrome without gangrene; K31.7 Polyp of stomach and duodenum; K21.00 Gastro-esophageal reflux disease with esophagitis, without bleeding; K31.89 Other diseases of stomach and duodenum; K29.50 Unspecified chronic gastritis without bleeding | CPT/HCPCS: 43239; 88305; 88342 ==

== ENCOUNTER → 2025-05-06 15:20 | Outpatient (REF) | payer OTHER, SELFPAY | LOC: RAD 15:20 | PROVIDERS: ATTENDING PHYSICIAN Physician Assistant; FAMILY PHYSICIAN Nurse Practitioner Family | DX: R05.3 Chronic cough (principal) | CPT/HCPCS: 71046 ==

== ENCOUNTER 2025-05-24 16:30 | Inpatient (IN) | payer OTHER, SELFPAY ==
[2025-05-24] VITALS (7 sets, daily range): BP systolic 114–155; BP diastolic 70–110; BMI 29.5; BMI 29.9
--- NOTE | 2025-05-24 11:30 | ED.GENMED ---
History of Present Illness
<Layla Ghosh PA-C - Last Filed: 05/28/25 00:24>
General
Chief Complaint: Cold/Flu/URI Symptoms
Source: patient
Exam Limitations: none
Time Seen by Provider: 05/24/25 10:47
Nursing documentation reviewed up to this point in time: agreed with
History of Present Illness
History of Present Illness:
45 y/o F
h/o scleroderma and lupus
on plaquenil and an infusion q6 mo
off steroids
'sick since
URI sxs, cough, sinus drainage, sore throat
has been seen several times,
most recently 1 mo ago by ENT karolina who did look at sinuses and put her on levaquin for 3 weeks which she just finished 5 dyas ago but then started with worsening pain in her throat, specifically submental/chin/neck with swelling nad paniful
swallowing just after finishing abx
she has not had fever, chills
she is able to swallow but with pain
she also has chroinc tightness in her cheeks from her scleroderma
Past History
<Layla Ghosh PA-C - Last Filed: 05/28/25 00:24>
Past History
ED Past Medical History: Other (autoimmune problems, currently being worked up for scleroderma), Other (Frequent UTIs) and Other (ADHD, anxiety, Raynaud's)
ED Past Surgical History: Other ([place] teeth)
Social History
Tobacco: Non-smoker
Alcohol: Occasional
Drug: None
Personal:
Living: with family
Employment: Employed
Family History
Family History: Other
Phy Exam
<Layla Ghosh PA-C - Last Filed: 05/28/25 00:24>
Physical Exam
Physical Exam:
GENERAL: Alert , in no apparent distress
EYE: pupils equal and reactive
NECK: swelling submental/submandibular, firm, slightly pink
tolerating secrections
ENT: b/l TM s clear, pharynx severe erythematous but no tonsillar hypertrophy or exudates
dry mouth
hoarse voice
toelrating secretions
angular chelitis
no gingival lesions
CARDIAC: Regular rate and rhythm, no edema
LUNGS: Clear breath sounds bilaterally, no acute respiratory distress, no wheezes/rales/rhonchi, occ cough
ABDOMEN: Soft, without focal tenderness, no r/g, no cvat, normal bowel sounds
NEUROLOGICAL: Alert and oriented, no focal neuro deficits
SKIN: Warm and dry, skin intact.
MUSCULOSKELETAL: No edema, well perfused.
PSYCH: Normal and appropriate interaction.
Course
<Layla Ghosh PA-C - Last Filed: 05/28/25 00:24>
Orders/Labs/Results
Orders:
Orders
05/24/25 11:10
CT Neck With Iv Contrast Urgent
Comment:
Reason For Exam: submental swelling, hoarse voice, painful swallowi
0.9% Sodium Chloride 1000 ml [Nss] 1,000 ml IV BOLUS
05/24/25 11:15
Comprehensive Metabolic Panel Urgent
05/24/25 11:16
COVID-19 Antigen Urgent
Source: Nasal Swab
Complete Blood Count/With Diff Urgent
Monotest Urgent
Influenza A+B Rapid Molecular Urgent
[place] Source: Nasal Swab
Specimen Description:
05/24/25 14:59
Dexamethasone Sod Phosphate [Decadron] 10 mg IV NOW STA
05/24/25 Dinner
IDDSI 6 - Soft & Bite Sized
At Your Request: Full Participation
05/24/25 15:03
INFECTIOUS DISEASE CONSULT Routine
Consulting Provider: Preeti Apple
Was physician already notified: Yes
05/24/25 15:08
Meropenem [Merrem] 1,000 mg IV NOW STA
Micafungin Sodium [Mycamine] 100 mg Dextrose 5%/Water 100 ml [D5w] 100 ml IV NOW
05/24/25 15:15
Sterile Water [Sterile Water For Injection] 20 ml .ROUTE .STK-MED
05/24/25 16:13
Admit/Transfer Patient As Directed
Co-Sign Provider:
Level of Care: Inpatient admission
Assign to:: Telemetry
Physician / Group: bridget bhandari
Diagnosis: Acute epiglottitis
Reason for Telemetry: Medication for Arrhythmia
Date to Stop Telemetry: 05/26/25
Time to Stop Telemetry: 11:00
Reason for Hospitalization: Acute epiglottitis
Expected length of stay greater than two midnights?: Yes
ELOS- Estimated Length of Stay in days: 3
I certify the patient meets the requirements for IP care: Yes
PRN Pain Medication Management As Directed
May give lesser potent ordered pain med per pt: Yes
preference::
Protocol:: Medication orders for pain may be administered in a
manner that supports deferring to patient preference
when the pt is:
- Requesting an ordered lesser potent pain medication.
Least to most potent pain medications are defined
as: acetaminophen < NSAID < tramadol < opioids
(morphine, oxycodone, hydromorphone).
- Requesting a lesser dose of the same medication IF
ORDERED.
- Requesting a less intrusive route of administration
if both routes are prescribed by the provider (PO <
IV).
05/24/25 16:14
Code Status As Directed
Resuscitation Status: Full Code
05/24/25 18:24
0.9% Sodium Chloride 1000 ml [Nss] 1,000 ml IV 100 mls/hr
Acetaminophen [Tylenol] 650 mg PO Q4HPRN PRN
Ondansetron Injectable [Zofran] 4 mg IV Q6HPRN PRN
Oxycodone [Roxicodone] 5 mg PO Q4HPRN PRN
05/24/25 18:24
ENT CONSULT Routine
Consulting Provider: Michael Matias
Was physician already notified: Yes
Activity As Directed
Activity Level: Ambulate
Pneumatic Compression Sleeves As Directed
Type: Knee high
Vital Signs As Directed
Frequency: Per unit guidelines
DX Deep Vein Thrombosis Video Routine
05/24/25 20:00
Dexamethasone Sod Phosphate [Decadron] 4 mg IV Q12H
Hydroxychloroquine [Plaquenil] 200 mg PO BID
05/24/25 21:00
Meropenem [Merrem] 500 mg IV Q6H
05/25/25 06:54
Complete Blood Count/With Diff IN AM
Magnesium IN AM
05/25/25 08:00
Pantoprazole [Protonix] 40 mg PO DAILY
05/25/25 15:00
Micafungin Sodium [Mycamine] 100 mg Dextrose 5%/Water 100 ml [D5w] 100 ml IV Q24H
05/26/25 11:00
DC Protocol for Telemetry ONCE
Abnormal Lab Results
05/24/25
11:16
RBC 4.11 L 10^6/uL
(4.20-5.40)
Hct 36.9 L %
(37.0-47.0)
Absolute Neuts (auto) 6.7 H 10^3/uL
(1.4-6.5)
Absolute Lymphs (auto) 1.0 L 10^3/uL
(1.2-3.4)
Absolute Monos (auto) 1.0 H 10^3/uL
(0.1-0.6)
Lymphocytes % 10.9 L %
(20.5-51.1)
Monocytes % 10.9 H %
(1.7-9.3)
05/24/25 11:16
05/24/25 11:15
Vital Signs
Initial and Last Documented VS:
Initial Vital Signs
Temp Pulse Resp BP Pulse Ox
37.2 C 115 18 155/110 97
05/24/25 09:58 05/24/25 09:58 05/24/25 09:58 05/24/25 09:58 05/24/25 09:58
Last Documented Vital Signs
Temp Pulse Resp BP Pulse Ox
36.6 C 96 16 138/89 97
05/26/25 13:35 05/26/25 13:35 05/26/25 11:00 05/26/25 13:35 05/26/25 13:35
<Parag Fernandez DO - Last Filed: 05/24/25 11:41>
Orders/Labs/Results
Orders:
Orders
05/24/25 11:10
CT Neck With Iv Contrast Urgent
Comment:
Reason For Exam: submental swelling, hoarse voice, painful swallowi
0.9% Sodium Chloride 1000 ml [Nss] 1,000 ml IV BOLUS
05/24/25 11:15
Comprehensive Metabolic Panel Urgent
05/24/25 11:16
COVID-19 Antigen Urgent
Source: Nasal Swab
Complete Blood Count/With Diff Urgent
Monotest Urgent
Influenza A+B Rapid Molecular Urgent
[place] Source: Nasal Swab
Specimen Description:
05/24/25 14:59
Dexamethasone Sod Phosphate [Decadron] 10 mg IV NOW STA
05/24/25 Dinner
IDDSI 6 - Soft & Bite Sized
At Your Request: Full Participation
05/24/25 15:03
INFECTIOUS DISEASE CONSULT Routine
Consulting Provider: Wankewicz,Preeti
Was physician already notified: Yes
05/24/25 15:08
Meropenem [Merrem] 1,000 mg IV NOW STA
Micafungin Sodium [Mycamine] 100 mg Dextrose 5%/Water 100 ml [D5w] 100 ml IV NOW
05/24/25 15:15
Sterile Water [Sterile Water For Injection] 20 ml .ROUTE .STK-MED
05/24/25 16:13
Admit/Transfer Patient As Directed
Co-Sign Provider:
Level of Care: Inpatient admission
Assign to:: Telemetry
Physician / Group: bridget bhandari
Diagnosis: Acute epiglottitis
Reason for Telemetry: Medication for Arrhythmia
Date to Stop Telemetry: 05/26/25
Time to Stop Telemetry: 11:00
Reason for Hospitalization: Acute epiglottitis
Expected length of stay greater than two midnights?: Yes
ELOS- Estimated Length of Stay in days: 3
I certify the patient meets the requirements for IP care: Yes
PRN Pain Medication Management As Directed
May give lesser potent ordered pain med per pt: Yes
preference::
Protocol:: Medication orders for pain may be administered in a
manner that supports deferring to patient preference
when the pt is:
- Requesting an ordered lesser potent pain medication.
Least to most potent pain medications are defined
as: acetaminophen < NSAID < tramadol < opioids
(morphine, oxycodone, hydromorphone).
- Requesting a lesser dose of the same medication IF
ORDERED.
- Requesting a less intrusive route of administration
if both routes are prescribed by the provider (PO <
IV).
05/24/25 16:14
Code Status As Directed
Resuscitation Status: Full Code
05/24/25 18:24
0.9% Sodium Chloride 1000 ml [Nss] 1,000 ml IV 100 mls/hr
Acetaminophen [Tylenol] 650 mg PO Q4HPRN PRN
Ondansetron Injectable [Zofran] 4 mg IV Q6HPRN PRN
Oxycodone [Roxicodone] 5 mg PO Q4HPRN PRN
05/24/25 18:24
ENT CONSULT Routine
Consulting Provider: Michael Matias
Was physician already notified: Yes
Activity As Directed
Activity Level: Ambulate
Pneumatic Compression Sleeves As Directed
Type: Knee high
Vital Signs As Directed
Frequency: Per unit guidelines
DX Deep Vein Thrombosis Video Routine
05/24/25 20:00
Dexamethasone Sod Phosphate [Decadron] 4 mg IV Q12H
Hydroxychloroquine [Plaquenil] 200 mg PO BID
05/24/25 21:00
Meropenem [Merrem] 500 mg IV Q6H
05/25/25 06:54
Complete Blood Count/With Diff IN AM
Magnesium IN AM
05/25/25 08:00
Pantoprazole [Protonix] 40 mg PO DAILY
05/25/25 15:00
Micafungin Sodium [Mycamine] 100 mg Dextrose 5%/Water 100 ml [D5w] 100 ml IV Q24H
05/26/25 11:00
DC Protocol for Telemetry ONCE
Abnormal Lab Results
05/24/25
11:16
RBC 4.11 L 10^6/uL
(4.20-5.40)
Hct 36.9 L %
(37.0-47.0)
Absolute Neuts (auto) 6.7 H 10^3/uL
(1.4-6.5)
Absolute Lymphs (auto) 1.0 L 10^3/uL
(1.2-3.4)
Absolute Monos (auto) 1.0 H 10^3/uL
(0.1-0.6)
Lymphocytes % 10.9 L %
(20.5-51.1)
Monocytes % 10.9 H %
(1.7-9.3)
05/24/25 11:16
05/24/25 11:15
Vital Signs
Initial and Last Documented VS:
Initial Vital Signs
Temp Pulse Resp BP Pulse Ox
37.2 C 115 18 155/110 97
05/24/25 09:58 05/24/25 09:58 05/24/25 09:58 05/24/25 09:58 05/24/25 09:58
Last Documented Vital Signs
Temp Pulse Resp BP Pulse Ox
36.6 C 96 16 138/89 97
05/26/25 13:35 05/26/25 13:35 05/26/25 11:00 05/26/25 13:35 05/26/25 13:35
<Layla Ghosh PA-C - Last Filed: 05/28/25 00:24>
MDM/Problems Addressed
Differential Diagnosis Includes:
uri, covid, flu, pneumonia, sinusitis, epiglottitis, pharyngitis, cellulitis
ludwigs
MDM/Problems Addressed:
mary wright 45 y/o F lupus, scleroderma
sore throat/odynophagia/neck swellign
STABLE airway/vitals
ct with submandibular stranding, possible mild epiglottitis;
d/w dr. matias from ENT, she was admitted 09/02 for same
ID consulted ([facility]): meropenem, micafungin,
ent will scope tomorrow
<Layla Ghosh PA-C - Last Filed: 05/28/25 00:24>
*Pulse Oximetry
SaO2: 97
Oxygen Mode of Delivery: Room air
Patient hypoxic: no (97)
*Critical Care Note
Total Time (30-74mins, 75-104mins- exclusive of procedures): Not Applicable
ED Attending Note
<Layla Ghosh PA-C - Last Filed: 05/28/25 00:24>
-
Portions of this chart may have been created with voice recognition software.� Occasional wrong word or��sound alike� substitutions may have occurred due to the inherent limitations of voice recognition software.
<Parag Fernandez DO - Last Filed: 05/24/25 11:41>
ED Attending Note
Patient seen and examined by attending physician: Yes
I performed the substantive portion of visit, reviewed & personally made and approve the management plan that is documented in note by myself or JENNIFER.: Yes
ED Attending Note:
I agree with Carolina's note
Patient presents with complaints of pain and swelling under her mandible. Patient has had recent issues with pharyngitis requiring long-term oral antibiotics. She completed a course of Levaquin very recently. Swelling began really over the past 1
to 2 days. Voice is a bit hoarse. She is able to swallow. No fever at home.
Physical exam
Awake alert and oriented x 3, no acute distress
Face: Facial fullness noted particularly swelling in the submandibular region.
Neck: Firmness and tenderness of the submandibular region
Mouth: No sublingual swelling or firmness. No trismus
Swelling noted submandibularly. We get a CT and labs to further evaluate.
Discharge Plan
Departure
Patient Disposition: Admit
Date of Disposition: 05/24/25
Time of Disposition: 15:01
Admit to: IMU
Presentation/result/management discussed w/ accepting MD/DO: Hospitalist
Condition: Fair
Covid-19: Not Applicable
Discharge Problem:
severe pharyngitis, Acute epiglottitis
Interventions
Interventions:
*Risk Screen - Suicide Last Done: 05/24/25 10:01
*General Assessment Last Done: 05/24/25 10:01
*Neglect/Abuse Screening Last Done: 05/24/25 10:01
*ED- Fall Risk Assessment Last Done: 05/24/25 18:07
*ED COVID-19 Vaccine History Last Done: 05/24/25 10:01
*Nursing Disposition Last Done: 05/24/25 18:07
ED- Pulmonary Assessment Last Done: 05/24/25 10:48
Discharge Date and Time
Discharge Date/Time: 05/24/25 18:20
[2025-05-24 11:49] LABS: COVID-19 Antigen Negative (Negative)
[2025-05-24] MEDS: NSS 1000 IV ×2 (11:56→21:30)
[2025-05-24 12:09] LABS: Hematocrit 36.9 % (37.0-47.0); Hemoglobin 12.7 g/dL (12.0-16.0); Mean Corp Hgb Conc. 34.4 g/dL (33.0-37.0); Mean Corpuscular Volume 89.8 fL (81.0-99.0); Nucleated Red Blood Cells % 0 %; Platelet Count 260 10^3/uL (130-400); Red Cell Dist. Width 13.2 % (11.5-14.5)
[2025-05-24 12:32] LABS: ALT (SGPT) < 10 U/L (0-35); AST (SGOT) 16 U/L (14-36); Albumin 3.7 g/dl (3.5-5.0); Alkaline Phosphatase 65 U/L (38-126); Blood Urea Nitrogen 9 mg/dl (7-17); Calcium 9.0 mg/dl (8.4-10.2); Carbon Dioxide 27 mmol/L (22-30); Chloride 105 mmol/L (98-107); Estimated Creatinine Clearance 124 ml/min; Glucose 86 mg/dl (70-99); Potassium 4.1 mmol/L (3.5-5.1); Sodium 138 mmol/L (135-145); Total Protein 7.1 g/dl (6.3-8.2); eGFR > 60.00
[2025-05-24] MEDS: DECADRON 10 MG IV (15:17)
[2025-05-24] MEDS: MERREM 1000 MG IV (15:21)
--- NOTE | 2025-05-24 15:38 | HPS.HSE ---
Family Physician
-
Family Physician: SHAN Colindres
Chief Complaint
-
Throat pain and swelling
History of Present Illness
45-year-old female with a past medical history of epiglottitis, scleroderma, lupus, and gastroesophageal reflux disease presents with worsening throat pain and swelling. Patient reports having URI symptoms since January 2025, she thought it was viral.
She has been seeing various physicians, and taking different courses of antibiotics and steroids. She recently saw an ENT doctor, and finished a 3-week course of Levaquin on . She reports that her sore throat has worsened, and her neck and
throat feel swollen. She has a productive cough, bringing up thick white-green sputum. Associated symptoms include shortness of breath during her coughing spells and odynophagia. She denies fever, denies chills. She has been able to tolerate a
soft diet at home. She has a history of acute epiglottitis that required admission here in August 2024. She is on Plaquenil and receives infusions every 6 months for her scleroderma and lupus.
Medical History
Past Medical History
Past Medical History: Reports Other
Additional Past Medical History:
Acute epiglottitis, scleroderma, lupus, Sjogren's
Past Surgical History: Reports Other
Additional Past Surgical History:
[place] teeth extraction
Social History
Tobacco: Non-smoker
Alcohol: Occasional (Patient drinks 3-5 drinks a week beer or whiskey's hours)
Personal:
Living: With Family ( [place])
Employment: Employed
Family History
Family History: Other (No family history CAD mother history of lupus from pneumonia age 57 also had brain tumor from lupus treatment)
Allergies / Home Medications
Allergies reflects when Allergies were last updated in [employer].
Home Medications with original date entered in [employer]
Allergy/Medication List:
Allergies
Allergy/AdvReac Type Severity Reaction Status Date / Time
vancomycin Allergy Mild Hives Verified 05/24/25 09:59
doxycycline Allergy Nausea / Verified 05/24/25 09:59
Vomiting
penicillin V Allergy Rash, Verified 05/24/25 09:59
Swelling,
itching;
tolerated
amoxicillin
Sulfa (Sulfonamide Allergy Hives Verified 05/24/25 09:59
Antibiotics)
Home Medications Table - record
�Medication �Instructions �Recorded �Confirmed
hydroxychloroquine 200 mg tablet 200 mg PO BID rheumatological 08/27/24 05/24/25
(Plaquenil) condition #0 tabs
pantoprazole 40 mg tablet,delayed 40 mg PO DAILY Gastrointestinal 08/27/24 05/24/25
release (Protonix) issue #30 tabs
Review of Systems
-
A 12 point ROS was completed and negative except as noted: Yes
Physical Exam
Vital Signs
Vital Signs
Temp Pulse Resp BP Pulse Ox
98.9 F 111 17 115/70 97
05/24/25 09:58 05/24/25 15:30 05/24/25 15:30 05/24/25 15:00 05/24/25 15:30
Physical Exam
General: No Apparent Distress and Other (Appears to not feel well)
HEENT: NormoCephalic, Anicteric, Moist mucous membranes, Pharyngeal Erythema and Other (Edematous submandibular and cervical region, with lymphadenopathy noted)
Respiratory: Clear
Cardiac: S1/S2 and Regular Rhythm
GI: Soft, Non Tender and Non Distended
Musculoskeletal: No Clubbing, No Cyanosis and No Edema
Skin: Warm and Dry
Neuro: AO x 3
Hematologic/Lymphatic: Lymphadenopathy (Cervical lymphadenopathy noted)
Psych: Calm
Laboratory Results
-
05/24/25 11:16
05/24/25 11:15
Laboratory Results
Total Bilirubin 0.8 mg/dl (0.2-1.3) 05/24/25 11:15
AST 16 U/L (14-36) 05/24/25 11:15
ALT < 10 U/L (0-35) 05/24/25 11:15
Alkaline Phosphatase 65 U/L (38-126) 05/24/25 11:15
Impression/Plan
-
HPI: 45-year-old female with a past medical history of epiglottitis, scleroderma, lupus, and gastroesophageal reflux disease presents with worsening throat pain and swelling. Patient reports having URI symptoms since January 2025, she thought it was
viral. She has been seeing various physicians, and taking different courses of antibiotics and steroids. She recently saw an ENT doctor, and finished a 3-week course of Levaquin on . She reports that her sore throat has worsened, and her
neck and throat feel swollen. She has a productive cough, bringing up thick white-green sputum. Associated symptoms include shortness of breath during her coughing spells and odynophagia. She denies fever, denies chills. She has been able to
tolerate a soft diet at home. She has a history of acute epiglottitis that required admission here in August 2024. She is on Plaquenil and receives infusions every 6 months for her scleroderma and lupus.
#Acute mild epiglottitis
#Pneumonia
COVID/flu negative
Neck CT shows ground glass opacities in the left upper lobe and superior left lower lobe, stranding and edema of the bilateral submandibular spaces, and questionable minimal thickening of the epiglottitis
Consult ID, consult ENT, check sputum culture if able to produce swallow
Continue Merrem, micafungin, dexamethasone
Soft diet
#Gastroesophageal reflux disease
Continue PPI
#Lupus
#Scleroderma
Continue Plaquenil
DVT prophylaxis�SCDs
Full code
Total time spent to see the patient on the floor, examine the patient, review data and lab results, discuss treatment plan with patient, nursing staff around 65 minutes.
[2025-05-24] MEDS: MYCAMINE 105 MG IV (15:51)
[2025-05-24] MEDS: HYCODAN SYRUP 5 ML PO (21:30)
[2025-05-24] MEDS: ROBITUSSIN 200 MG PO ×2 (21:30→22:43)
[2025-05-24] MEDS: MERREM 500 MG IV (21:30)
[2025-05-24] MEDS: DECADRON 4 MG IV (21:30)
[2025-05-24] MEDS: PLAQUENIL 200 MG PO (21:30)
[2025-05-25] MEDS: MERREM 500 MG IV ×2 (03:08→09:19)
[2025-05-25 03:50] VITALS: BP 122/71
[2025-05-25 07:00] VITALS: BP 131/88
--- NOTE | 2025-05-25 07:52 | W.PN.HOSP.TC ---
Today's Communication/Plan
-
abx as per ID
cont steroids
check for cdiff
probiotics, imodium prn if cdiff neg
Assessment / Plan
Assessment / Plan
Physical Exam
General: No Apparent Distress appears comfortable at this time
HEENT: NormoCephalic, Anicteric, Moist mucous membranes, Pharyngeal Erythema, cervical lymphadenopathy noted. Facial flushing noted.
Respiratory: Clear
Cardiac: S1/S2 and Regular Rhythm
GI: Soft, Non Tender and Non Distended
Musculoskeletal: No Clubbing, No Cyanosis and No Edema
Skin: Warm and Dry
Neuro: AO x 3 conversant coherent
Psych: Calm
HPI: 45-year-old female with a past medical history of epiglottitis, scleroderma, lupus, and gastroesophageal reflux disease presents with worsening throat pain and swelling. Patient reports having URI symptoms since January 2025, she thought it was
viral. She has been seeing various physicians, and taking different courses of antibiotics and steroids. She recently saw an ENT doctor, and finished a 3-week course of Levaquin on . She reports that her sore throat has worsened, and her
neck and throat feel swollen. She has a productive cough, bringing up thick white-green sputum. Associated symptoms include shortness of breath during her coughing spells and odynophagia. She denies fever, denies chills. She has been able to
tolerate a soft diet at home. She has a history of acute epiglottitis that required admission here in August 2024. She is on Plaquenil and receives infusions every 6 months for her scleroderma and lupus.
#Acute mild epiglottitis
#Pneumonia
COVID/flu negative
Neck CT shows ground glass opacities in the left upper lobe and superior left lower lobe, stranding and edema of the bilateral submandibular spaces, and questionable minimal thickening of the epiglottitis
check sputum culture if able to produce swallow
ENT consult appreciated
ID eval appreciated Merrem, micafungin, de-escalated to Augmentin
cont dexamethasone
Soft diet
#Diarrhea
possibly 2/2 to abx
checking for possible Cdiff given pt has been on extended course of abx
imodium prn if cdiff neg
probiotic
#Gastroesophageal reflux disease
Continue PPI
#Lupus
#Scleroderma
Continue Plaquenil
DVT prophylaxis�SCDs
Full code
Total time spent to see the patient on the floor, examine the patient, review data and lab results, discuss treatment plan with patient, nursing staff around 50 minutes.
Anticipated Discharge: 24 - 48 hours
Subjective/Interval History
-
Date of Service: May 25, 2025
No acute distress, sitting up comfortably in bed. Reports 2 episodes of diarrhea. Otherwise throat overall feels much better.
Objective Data
-
Labs:
Laboratory Results
05/25/25
06:54
WBC Pending
Hgb Pending
Hct Pending
Plt Count Pending
Vital Signs:
Vital Signs
Temp Pulse Resp BP Pulse Ox
97.9 F 83 16 122/71 96
05/25/25 03:50 05/25/25 03:50 05/25/25 03:50 05/25/25 03:50 05/25/25 03:50
[2025-05-25] MEDS: DECADRON 4 MG IV ×2 (08:06→20:56)
[2025-05-25] MEDS: PROTONIX 40 MG PO (08:06)
[2025-05-25] MEDS: PLAQUENIL 200 MG PO ×2 (08:06→20:56)
[2025-05-25] MEDS: ROBITUSSIN 200 MG PO ×4 (08:06→20:56)
[2025-05-25 08:29] LABS: Magnesium 1.8 mg/dl (1.6-2.3)
--- NOTE | 2025-05-25 08:44 | W.CON.OTO ---
Otolaryngology Consult
Chief Complaint
Sore throat, cough with phlegm
History of Present Illness
Lashanda Salomon is a 45-year-old female known to me from previous admissions. She has a history of lupus and is currently on Plaquenil and Rituxan. She has previously been on steroids but that has been stopped. Earlier in the summer,
approximately 3 months ago, she began to experience a sore throat and a cough with phlegm. She was seen by her primary care physician and initially treated with antibiotics and steroids but did not improve. Later on she was treated with allergy
medication. She continued to have problems until April. In late April she was seen in my practice by our PA. At that point in time she was treated for suspected sinusitis with a 21-day course of Levaquin. A chest x-ray at that time was clear.
Lashanda states she did not improve on the Levaquin. She denies any nasal congestion or blowing any mucus out of her nose. She also denies any postnasal drip. She continues to complain of a sore throat along with phlegm in her throat and
coughing up thick mucus. Over the weekend she felt like her throat was tightening and was having some difficulty swallowing. Therefore she came to the emergency room for evaluation. CT scan did show some inflammation in the neck with possible
thickening of the epiglottis. She was admitted for treatment. She has subsequently received meropenem and Decadron. Lashanda is feeling much better today. She has less pain and is no longer feeling her throat is tightening. However she still
has some discomfort in her neck and is coughing up thick phlegm. She denies any fevers or chills. She is breathing without any distress and is able to eat and swallow without difficulty.
Medical History
Additional Past Medical History:
Scleroderma, lupus, Sjogren's
Additional Past Surgical History:
[place] teeth extraction
Patient Allergies:
Allergies
Allergy/AdvReac Type Severity Reaction Status Date / Time
vancomycin Allergy Mild Hives Verified 05/24/25 09:59
doxycycline Allergy Nausea / Verified 05/24/25 09:59
Vomiting
penicillin V Allergy Rash, Verified 05/24/25 09:59
Swelling,
itching;
tolerated
amoxicillin
Sulfa (Sulfonamide Allergy Hives Verified 05/24/25 09:59
Antibiotics)
Home Medications / Current Medications:
Current medications reviewed in electronic medical record
Physical Exam
Vitals / Labs:
Vital Signs
Temp 97.9 F 05/25/25 03:50
Temp route: Oral 05/25/25 03:50
Pulse 83 05/25/25 03:50
Rhythm: Normal sinus rhythm 05/24/25 19:45
Resp Rate 16 05/25/25 03:50
Blood pressure 122/71 05/25/25 03:50
Blood pressure extremity used: Left upper arm 05/25/25 03:50
Position: Lying 05/25/25 03:50
MAP (cuff-Bayron Monitor) 90 05/24/25 16:00
SaO2 96 05/25/25 03:50
Oxygen Mode of Delivery Room air 05/25/25 03:50
Acceptable pain level during hospitalization? 0 05/24/25 10:01
Can the patient verbally communicate their pain? Yes 05/24/25 19:45
Pain scale ratin 05/24/25 19:45
Actual Weight 81.42 kg 05/24/25 18:42
Body Mass Index (BMI) 29.9 05/24/25 18:42
Lab Results
05/24/25 11:15
Exam:
Patient is afebrile, vital signs stable.
Awake, alert, oriented, in no acute distress.
Head normocephalic and atraumatic.
Ears clear bilaterally.
Nasal cavity clear anteriorly, deviated septum noted to the left side, no significant mucus present in oral cavity and oropharynx within normal limits, mucous membranes moist and pink, no exudate or erythema present.
Neck with enlarged, firm, tender jugulodigastric lymphadenopathy left greater than right. Nonfluctuant, overlying skin within normal limits.
Flexible fiberoptic laryngoscopy performed at the bedside. The scope was easily passed through the right side of the nasal cavity. The nasopharynx was unremarkable. The oropharynx was clear. The base of tongue, vallecula, aryepiglottic folds,
piriform sinuses were all unremarkable, some mild thick mucus was present. The mucosa of the epiglottis, aryepiglottic folds, and arytenoids was mildly erythematous and edematous. Both true vocal folds were within normal limits and mobile. The
airway was widely patent. The subglottis appeared to be clear, although there may have been some mild mucus present below the vocal cords. No masses or neoplasms were visualized.
Assessment / Plan
My impression of Lashanda Salomon is that she is a 45-year-old female with acute pharyngitis, possible tracheitis and possible pneumonia. There is no evidence of acute epiglottitis, either clinically or on examination. There is also no evidence
of sinusitis on the CT scan. Her picture is more consistent with a diffuse throat infection. Obviously she is at risk for infection because of her immunosuppression due to her rheumatologic treatment. Currently, she is feeling better after 24
hours on broad-spectrum antibiotics, antifungals, and Decadron. Would continue the antibiotic and Decadron for today. ID consult may be advisable to help pick antibiotics and to plan on discharge. If a sputum sample can be obtained that would be
helpful, although at this point it may be negative due to the antibiotic use. I would continue her antibiotics and Decadron for another 24 hours. Hopefully if she is stable tomorrow she can go home on oral antibiotics and follow-up as an
outpatient. I know she had a normal chest x-ray several weeks ago but she continues to bring up a large amount of thick sputum. With her sinuses being clear on the CT scan a chest x-ray may be advisable. The chest CT does have some findings that
are suspicious for pneumonia as well.
Data Reviewed
CT Scan: Image Personally Visualized and interpreted
Lab Data: Labs Reviewed by me
--- NOTE | 2025-05-25 09:13 | CON.ID ---
Addendum entered and electronically signed by Lacey Osei MD 05/25/25 16:37:
I personally performed a history and physical exam of the patient and discussed management with the resident. I reviewed the resident's note and agree with most of the documented findings and plan of care HPI/CC.
# Acute throat tightening and dysphagia
# Severe pharyngitis
# Epiglottitis ruled out by ENT
# Sore-throat and cough x 3 months
# Lupus, scleroderma, Sjogren's, recently started first dose Rituxan )02/2025 ([id number]). Previously on Cellcept.
- Neck CT + edema bilateral submandibular pharynx, hypopharynx
- Sputum cx pending.
- Significant clinical improvement with steroid and IV antibiotics.
- De-escalate meropenem and micafungin to amox/clav 875mg po bid to complete 10d course.
Original Note:
Consultation
-
Date/Time Consultation Requested: 05/24/2025 15: 03
Date/Time Consultation Performed: 05/25/2020 09: 30
Requesting Provider: Layla Ghosh PA-c
Performing Provider: Edgard Church MD ; Lacey Osei MD
Reason for Consultation: Epiglottitis
Chief Complaint / Past History
Chief Complaint
Sore throat and cough with phlegm
History of Present Illness
This is a 45-year-old female with known history of lupus currently on Plaquenil and Rituxan(q6 month)(started in February 2025); previously was on Plaquenil and CellCept with steroids. Patient informed me that for the last 3 months she has been
experiencing sore throat with cough she was treated with antibiotics recently for 21 days of Levaquin which she finished last Sunday and it did not help. She also had a chest x-ray in April with ENT which was reportedly clear. With her ongoing
sore throat, cough with phlegm, over the weekend she felt that her throat was closing and had some difficulty swallowing and decided to come to the emergency department yesterday(
She had a CT scan in the emergency department which showed some inflammation in the neck with possible thickening of the epiglottitis. She was admitted and ENT was consulted. She was started on meropenem, micafungin and dexamethasone.
She has a history of acute epiglottitis that required admission in August 2024 as well.
Past History
Past Medical History: Other (Lupus, Scleroderma, Sjogren's, Raynaud's)
Past Surgical History: Other ([place] teeth extraction)
Allergy History:
vancomycin Allergy (Mild, Verified 05/24/25 09:59)
Hives
doxycycline Allergy (Verified 05/24/25 09:59)
Nausea / Vomiting
penicillin V Allergy (Verified 05/24/25 09:59)
Rash, Swelling, itching; tolerated amoxicillin
Sulfa (Sulfonamide Antibiotics) Allergy (Verified 05/24/25 09:59)
Hives
Medications Reviewed: Yes
Current Antibiotics:
meropenem
Social History
Tobacco: Non-Smoker
Alcohol: Occasional
Drug: None
Personal:
Living: With Family
Employment: Employed
Family History
Family History: Other (Mother: Lupus)
Review of Systems
Review of Systems
General: Negative Fever or Chills
HEENT: Other (sore throat; improving); Negative Stiff Neck or Headache
Cardiovascular: Negative Chest Pain
Respiratory: Cough (better) and Sputum Production; Negative Dyspnea or Hemoptysis
Genital / Urological: Negative Dysuria
Neurological: Negative Headache
Vital Signs
Temp Pulse Resp BP Pulse Ox
98.0 F 93 16 131/88 97
05/25/25 07:00 05/25/25 07:00 05/25/25 07:00 05/25/25 07:00 05/25/25 07:00
Physical Exam
Physical Exam
Constitutional: No Acute Distress and Comfortable
Oral: No Thrush and No Ulcers
Lymph Nodes: Lymphadenopathy (cervical)
Cardiovascular: Regular Rate and S1/S2
Pulmonary: Clear, Symmetric and Non Labored
Skin: Warm
Neurological: Awake, Alert and Oriented
Psychological: Calm
Lab / Diagnostic Study Results
05/24/25 11:15
Abs Immat Gran (auto) 0.0 10^3/uL (0-0.05) 05/24/25 11:16
Absolute Neuts (auto) 6.7 10^3/uL (1.4-6.5) H 05/24/25 11:16
Absolute Lymphs (auto) 1.0 10^3/uL (1.2-3.4) L 05/24/25 11:16
Absolute Monos (auto) 1.0 10^3/uL (0.1-0.6) H 05/24/25 11:16
Absolute Basos (auto) 0.0 10^3/uL (0-0.2) 05/24/25 11:16
Immature Gran % 0.2 % (0-0.5) 05/24/25 11:16
Neutrophils % 71.6 % (42.2-75.2) 05/24/25 11:16
Lymphocytes % 10.9 % (20.5-51.1) L 05/24/25 11:16
Monocytes % 10.9 % (1.7-9.3) H 05/24/25 11:16
Eosinophils % 6.0 % (0-6) 05/24/25 11:16
Basophils % 0.4 % (0-2) 05/24/25 11:16
Microbiology Results
Micro:
05/24/25 11:16 Influenza Types A & B (HARSHAD) - Final
Nasal Swab Negative for Influenza A & B, NAAT
Negative results must be combined with clinical observations
and patient history.
Nucleic Acid Amplification test (NAAT)performed on the
[employer] platform.
CT Neck With Iv Contrast 05/24/2025:
There is stranding and edema within the bilateral submandibular spaces which appears to extend into the pharynx/hypopharynx. There is questionable minimal thickening of the epiglottis. There is associated enlarged cervical, , submental findings are
overall similar to prior CT neck. And submandibular lymph nodes as well as mild enlargement of the palatine and lingual tonsils. Consolation of findings likely represents severe pharyngitis with a questionable element of epiglottitis.
There are ground glass opacities within the lateral left upper lobe and superior left lower lobe which are likely infectious/inflammatory and concerning for pneumonia.
The bilateral parotid glands appear cystic/nodular which can be seen in the setting of autoimmune disease/chronic parotitis, although there are no findings to suggest acute inflammation.
05/25/25: Flexible fiberoptic laryngoscopy performed at the bedside with ENT.
The scope was easily passed through the right side of the nasal cavity. The nasopharynx was unremarkable. The oropharynx was clear. The base of tongue, vallecula, aryepiglottic folds, piriform sinuses were all unremarkable, some mild thick mucus
was present. The mucosa of the epiglottis, aryepiglottic folds, and arytenoids was mildly erythematous and edematous. Both true vocal folds were within normal limits and mobile. The airway was widely patent. The subglottis appeared to be clear,
although there may have been some mild mucus present below the vocal cords. No masses or neoplasms were visualized.
Assessment / Plan
# Acute epiglottitis
# Lupus
# Sjogren syndrome/scleroderma
-- Had similar episode in 08/2024, was on cftx and vanco inpatient for 3 days and was dc on augemntin.
- Flu negative, mono negative, COVID-negative
- Sputum culture pending
- currently on Meropenem, micafungin and Decadron 4 mg IV every 12; there is no signs of fungal inf on exam today, will dc micafungin, switch meropenem to augmentin for total 10 days for now
can continue steroid for now
informed me that even though she has documented doxy and pencillin allergies. she had trialed both recently and tolerated without any side effect.
[2025-05-25] MEDS: STERILE WATER FOR INJECTION 10 ML IV (09:19)
[2025-05-25 10:25] LABS: Blood Urea Nitrogen 7 mg/dl (7-17); Calcium 8.7 mg/dl (8.4-10.2); Carbon Dioxide 22 mmol/L (22-30); Chloride 108 mmol/L (98-107); Estimated Creatinine Clearance 125 ml/min; Glucose 142 mg/dl (70-99); Potassium 4.2 mmol/L (3.5-5.1); Sodium 138 mmol/L (135-145); eGFR > 60.00
[2025-05-25 10:46] LABS: Hematocrit 35.1 % (37.0-47.0); Hemoglobin 11.9 g/dL (12.0-16.0); Mean Corp Hgb Conc. 33.9 g/dL (33.0-37.0); Mean Corpuscular Volume 91.2 fL (81.0-99.0); Nucleated Red Blood Cells % 0 %; Platelet Count 315 10^3/uL (130-400); Red Cell Dist. Width 13.2 % (11.5-14.5)
[2025-05-25 10:53] VITALS: BP 132/84
[2025-05-25] MEDS: FLORASTOR 250 MG PO ×2 (14:13→20:56)
--- NOTE | 2025-05-25 14:54 | CM ---
CM met with pt bedside
Pt resides with spouse and occasionally college aged son in a [place] with [place] [place]
Pt is indep with her ADLs, PRN use of Albuterol inhaler
Denies use of DMEs
PCP- Solo Kohler
Rx- [facility]
Discharge Disposition- anticipate home no needs, watch plan for abx
[2025-05-25 15:00] VITALS: BP 135/83
[2025-05-25 19:47] VITALS: BP 117/69
[2025-05-25] MEDS: HYCODAN SYRUP 5 ML PO (20:56)
[2025-05-25] MEDS: AUGMENTIN 875 MG/125 MG 1 TABLET PO (20:57)
[2025-05-25 23:24] VITALS: BP 130/81
[2025-05-26 03:28] VITALS: BP 132/86
[2025-05-26 07:25] LABS: Hematocrit 36.8 % (37.0-47.0); Hemoglobin 12.8 g/dL (12.0-16.0); Mean Corp Hgb Conc. 34.8 g/dL (33.0-37.0); Mean Corpuscular Volume 91.8 fL (81.0-99.0); Platelet Count 333 10^3/uL (130-400); Red Cell Dist. Width 13.3 % (11.5-14.5)
[2025-05-26 07:40] LABS: Blood Urea Nitrogen 8 mg/dl (7-17); Calcium 9.1 mg/dl (8.4-10.2); Carbon Dioxide 26 mmol/L (22-30); Chloride 109 mmol/L (98-107); Estimated Creatinine Clearance 125 ml/min; Glucose 134 mg/dl (70-99); Magnesium 2.0 mg/dl (1.6-2.3); Potassium 4.4 mmol/L (3.5-5.1); Sodium 139 mmol/L (135-145); eGFR > 60.00
--- NOTE | 2025-05-26 07:50 | PTCARENOTE ---
Patient went down to cafeteria for coffee without letting nursing know, hr was in 140's. Patient was educated that she has to let nursing know if she wants to leave the floor. She was also educated that she should not be leaving this floor unless
for a testing or a procedure and that nursing has to know where she is for safety.
[2025-05-26] MEDS: FLORASTOR 250 MG PO (07:58)
[2025-05-26] MEDS: PLAQUENIL 200 MG PO (07:58)
[2025-05-26] MEDS: AUGMENTIN 875 MG/125 MG 1 TABLET PO (07:58)
[2025-05-26] MEDS: DECADRON 4 MG IV (07:58)
[2025-05-26] MEDS: PROTONIX 40 MG PO (07:58)
[2025-05-26] MEDS: ROBITUSSIN 200 MG PO ×2 (07:58→13:23)
[2025-05-26 08:04] VITALS: BP 129/79
[2025-05-26 11:00] VITALS: BP 156/96
--- NOTE | 2025-05-26 11:08 | W.PN.HOSP.TC ---
Today's Communication/Plan
-
discharge
Assessment / Plan
Assessment / Plan
Physical Exam
General: No Apparent Distress appears comfortable at this time
HEENT: NormoCephalic, Anicteric, Moist mucous membranes, Pharyngeal Erythema, cervical lymphadenopathy noted. Facial flushing noted (per patient, her normal reaction when on steroids)
Respiratory: Clear
Cardiac: S1/S2 and Regular Rhythm
GI: Soft, Non Tender and Non Distended
Musculoskeletal: No Clubbing, No Cyanosis and No Edema
Skin: Warm and Dry
Neuro: AO x 3 conversant coherent
Psych: Calm
HPI: 45-year-old female with a past medical history of epiglottitis, scleroderma, lupus, and gastroesophageal reflux disease presents with worsening throat pain and swelling. Patient reports having URI symptoms since January 2025, she thought it was
viral. She has been seeing various physicians, and taking different courses of antibiotics and steroids. She recently saw an ENT doctor, and finished a 3-week course of Levaquin on . She reports that her sore throat has worsened, and her
neck and throat feel swollen. She has a productive cough, bringing up thick white-green sputum. Associated symptoms include shortness of breath during her coughing spells and odynophagia. She denies fever, denies chills. She has been able to
tolerate a soft diet at home. She has a history of acute epiglottitis that required admission here in August 2024. She is on Plaquenil and receives infusions every 6 months for her scleroderma and lupus.
#Acute Pharyngitis
#Less likely epiglottitis
#Pneumonia
COVID/flu negative
Neck CT shows ground glass opacities in the left upper lobe and superior left lower lobe, stranding and edema of the bilateral submandibular spaces, and questionable minimal thickening of the epiglottitis
sputum cx appreciated prelim neg
ENT consult appreciated more likely acute pharyngitis than epiglottitis
ID eval appreciated Merrem, micafungin, de-escalated to Augmentin
dexamethasone transitioned to Prednisone short taper planned
Soft diet
#Diarrhea
possibly 2/2 to abx
checking for possible Cdiff given pt has been on extended course of abx
imodium prn if cdiff neg
probiotic
Diarrhea however since resolved
#Gastroesophageal reflux disease
Continue PPI
#Lupus
#Scleroderma
Continue Plaquenil
DVT prophylaxis�SCDs
Full code
Medically stable for discharge home with outpatient follow up recommendations.
Total Time Preparing Discharge ___40___ minutes including examination of the patient, summary of the hospital stay, instructions for continuing care to all relevant caregivers; and preparation of discharge records, prescriptions, and referral forms
if necessary.
Anticipated Discharge: Today
Subjective/Interval History
-
Date of Service: May 26, 2025
Seen and examined at bedside in no acute distress. Overall reports feeling well. Denies new acute issues at this time. Diarrhea resolved. Looking forward to going home.
Objective Data
-
Labs:
Laboratory Results
05/26/25 05/26/25
06:39 06:40
WBC 11.0 H
Hgb 12.8
Hct 36.8 L
Plt Count 333
Sodium 139
Potassium 4.4
Chloride 109 H
Carbon Dioxide 26
BUN 8
Creatinine 0.6
Glucose 134 H
Calcium 9.1
Vital Signs:
Vital Signs
Temp Pulse Resp BP Pulse Ox
98.1 F 82 20 129/79 95
05/26/25 08:04 05/26/25 08:04 05/26/25 08:04 05/26/25 08:04 05/26/25 08:04
I&O
05/25/25 05/26/25 05/27/25
06:59 06:59 06:59
Intake Total 180 / 180
Balance 180 / 180
--- NOTE | 2025-05-26 11:23 | W.PN.ID1 ---
Date of Service
Date of Service: May 26, 2025
Today's Communication
- Continue amox/clav 875mg po bid to complete 10d course through 06/02.
- ID will sign off.
Assessment / Plan
# Pharyngitis
# Epiglottitis ruled out by ENT
# Sore-throat and cough x 3 months
# Lupus, scleroderma, Sjogren's, recently started first dose Rituxan )02/2025 ([id number]). Previously on Cellcept.
- Neck CT + edema bilateral submandibular pharynx, hypopharynx
- Sputum cx: usual resp sri
- Continue to improve significantly on steroid and abx.
- Continue amox/clav 875mg po bid to complete 10d course through 06/02.
ID will sign off.
Chief Complaint
-: Other
Subjective / Review of Systems
Continues to feel much improved. Less cough, mucous now clear.
Swallowing well.
Vital Signs / Physical Exam
Vital Signs
Vital Signs
Temp Pulse Resp BP Pulse Ox
98.1 F 82 20 129/79 95
05/26/25 08:04 05/26/25 08:04 05/26/25 08:04 05/26/25 08:04 05/26/25 08:04
Physical Exam
Constitutional: No Acute Distress and Comfortable
Head: Other (Decreased bilateral submandibular edema)
Oropharyngeal: Other
Cardiovascular: Regular Rate and S1/S2
Pulmonary: Clear
Gastrointestinal: Soft, Non Tender, Non Distended and Normal Bowel Sounds
Genito-Urinary: Negative CVA Tenderness
Extremities: Negative Edema
Neurological: AO x 3
Objective Data
Lab Data
Lab Results
05/26/25 06:40
05/26/25 06:39
Estimated Creat Clear 125 ml/min 05/26/25 06:39
Total Bilirubin 0.8 mg/dl (0.2-1.3) 05/24/25 11:15
AST 16 U/L (14-36) 05/24/25 11:15
ALT < 10 U/L (0-35) 05/24/25 11:15
Alkaline Phosphatase 65 U/L (38-126) 05/24/25 11:15
Most recent labs reviewed.
Micro Results:
05/25/25 09:11 Respiratory Culture - Preliminary
Sputum - Induced Usual Respiratory Sri
Gram Stain - Preliminary
05/24/25 11:16 Influenza Types A & B (HARSHAD) - Final
Nasal Swab Negative for Influenza A & B, NAAT
Negative results must be combined with clinical observations
and patient history.
Nucleic Acid Amplification test (NAAT)performed on the
[employer] platform.
CT Neck With Iv Contrast 05/24/2025:
There is stranding and edema within the bilateral submandibular spaces which appears to extend into the pharynx/hypopharynx. There is questionable minimal thickening of the epiglottis. There is associated enlarged cervical, , submental findings are
overall similar to prior CT neck. And submandibular lymph nodes as well as mild enlargement of the palatine and lingual tonsils. Consolation of findings likely represents severe pharyngitis with a questionable element of epiglottitis.
There are ground glass opacities within the lateral left upper lobe and superior left lower lobe which are likely infectious/inflammatory and concerning for pneumonia.
The bilateral parotid glands appear cystic/nodular which can be seen in the setting of autoimmune disease/chronic parotitis, although there are no findings to suggest acute inflammation.
05/25/25: Flexible fiberoptic laryngoscopy performed at the bedside with ENT.
The scope was easily passed through the right side of the nasal cavity. The nasopharynx was unremarkable. The oropharynx was clear. The base of tongue, vallecula, aryepiglottic folds, piriform sinuses were all unremarkable, some mild thick mucus
was present. The mucosa of the epiglottis, aryepiglottic folds, and arytenoids was mildly erythematous and edematous. Both true vocal folds were within normal limits and mobile. The airway was widely patent. The subglottis appeared to be clear,
although there may have been some mild mucus present below the vocal cords. No masses or neoplasms were visualized.
--- NOTE | 2025-05-26 11:47 | CM ---
Reviewed Chart. Met with pt bedside. Continues on IV steroids. Feels much better today.
Plan: Home no needs
--- NOTE | 2025-05-26 13:23 | W.DCSUMMARY ---
Discharge Summary
Discharge Data
Date of Admission: 05/24/25
Date of Discharge: 05/26/25
-
Pending Results: Yes
Additional Pending Results:
official sputum culture results
Discharge Plan
-
Patient Disposition: Home (Routine Discharge)
Discharge Diagnosis/Procedures: Acute Pharyngitis
Condition: Fair
Additional Diets: Soft bite sized diet, ok to advance as tolerated
Activity: As tolerated
Driving Restrictions: As prior to admission
Bathing Restrictions: None
Activity Restrictions/Additional Instructions:
Follow up with primary care provider in 1 week of discharge and ENT in 2-3 weeks of discharge.
Augmentin prescribed for acute pharyngitis. Last day for antibiotics is 06/02/25.
Probiotic prescribed to promote gut health while on antibiotics. This is available over the counter.
A short prednisone taper has been prescribed:
40 mg day 1, 30 mg day 2, 20 mg day 3, 10 mg day 4, then stop
Please take medications as prescribed/recommended and follow up with primary care provider and/or other healthcare provider involved in your care for refills and/or further adjustment to your medication regimen as necessary.
Referrals:
Arun Kohler CRNP [Family Provider, Family Practice] - in one week
Michael Price MD [Active, ENT] - in two to three weeks
Prescriptions:
New
amoxicillin-pot clavulanate 875-125 mg Tablet
1 tab PO Q12 Qty: 15 0RF
Rx Instructions:
06/02/25 Last day for antibiotics
Saccharomyces boulardii 250 mg Capsule
250 mg PO BID Qty: 15 0RF
prednisone 10 mg Tablet
See Rx Instructions .ROUTE .COMPLEX Qty: 10 0RF
Rx Instructions:
Take By Mouth:
40 mg daily x1 day, 30 mg daily x1 day,
20 mg daily x1 day, 10 mg daily x1 day. then stop
Continued
pantoprazole [Protonix] 40 mg tablet,delayed release (DR/EC)
40 mg PO DAILY Qty: 30 0RF
hydroxychloroquine [Plaquenil] 200 mg Tablet
200 mg PO BID Qty: 0 0RF
Discharge Orders:
Discharge Patient (As Directed); Ordered 05/26/25
Ordered By: Frank Lawson
Discharge Date and Time
Print Language: ERITREAN
[2025-05-26 13:35] VITALS: BP 138/89
== END 2025-05-26 14:40 | disposition home or self-care (01) | DRG 152 ==
LOC: 4 EAST ACU 16:30
PROVIDERS: Physician Assistant; ADMITTING PHYSICIAN Family Medicine; ATTENDING PHYSICIAN Internal Medicine; CONSULT PHYSICIAN Otolaryngology; EMERGENCY PHYSICIAN Emergency Medicine; FAMILY PHYSICIAN Nurse Practitioner Family; OTHER PHYSICIAN Internal Medicine Infectious Disease
DX: J02.9 Acute pharyngitis, unspecified (principal); J18.9 Pneumonia, unspecified organism; M34.9 Systemic sclerosis, unspecified; M32.9 Systemic lupus erythematosus, unspecified; K21.9 Gastro-esophageal reflux disease without esophagitis; M35.00 Sjogren syndrome, unspecified; R19.7 Diarrhea, unspecified; Z11.52 Encounter for screening for COVID-19; Z79.899 Other long term (current) drug therapy
CPT/HCPCS: 70491; 80048; 80053; 83735; 84100; 85025; 85027; 86308; 87070; 87205; 87502; 87811; 96361; 96374; 96375; 99285; J2185; Q9967

== ENCOUNTER 2025-07-02 17:37 | Inpatient (IN) | payer OTHER, SELFPAY ==
[2025-07-02 13:45] VITALS: BP 184/120
[2025-07-02 14:52] VITALS: BP 143/91
[2025-07-02 15:00] VITALS: BP 140/85
[2025-07-02] MEDS: DECADRON 10 MG PO (15:00)
[2025-07-02 15:17] LABS: Hematocrit 38.1 % (37.0-47.0); Hemoglobin 12.6 g/dL (12.0-16.0); Mean Corp Hgb Conc. 33.1 g/dL (33.0-37.0); Mean Corpuscular Volume 91.4 fL (81.0-99.0); Nucleated Red Blood Cells % 0 %; Platelet Count 256 10^3/uL (130-400); Red Cell Dist. Width 12.9 % (11.5-14.5)
[2025-07-02 15:26] VITALS: BMI 31.5
[2025-07-02 15:30] LABS: HCG, Serum Qualitative Screen Negative
[2025-07-02 15:34] LABS: ALT (SGPT) 11 U/L (0-35); AST (SGOT) 18 U/L (14-36); Albumin 3.9 g/dl (3.5-5.0); Alkaline Phosphatase 59 U/L (38-126); Blood Urea Nitrogen 9 mg/dl (7-17); Calcium 9.1 mg/dl (8.4-10.2); Carbon Dioxide 25 mmol/L (22-30); Chloride 105 mmol/L (98-107); Estimated Creatinine Clearance > 125 ml/min; Glucose 101 mg/dl (70-99); Potassium 3.8 mmol/L (3.5-5.1); Sodium 134 mmol/L (135-145); Total Protein 7.3 g/dl (6.3-8.2); eGFR > 60.00
[2025-07-02 15:50] LABS: COVID-19 Antigen Negative (Negative)
--- NOTE | 2025-07-02 15:58 | ED.GENMED ---
History of Present Illness
General
Chief Complaint: Swallowing Problem
Time Seen by Provider: 07/02/25 14:09
History of Present Illness
History of Present Illness:
45-year-old female with history of lupus and scleroderma presenting for throat pain and difficulty swallowing. Patient notes symptoms essentially since May. She has had multiple treatments with antibiotics and steroids without relief. She
was seen in the hospital in May, had CT imaging with concern for epiglottitis. Patient treated again with antibiotics and steroids. She did have interval improvement, however few days after discharge felt that her symptoms persisted.
However since last night patient has had difficulty swallowing. She also feels like her voice has been more hoarse. Denies any known fever. She reports that in February she had a biologic injection for her lupus, and she feels that is strongly
contributing to her symptoms. She has not felt better since. Denies chest pain or difficulty breathing. She has had a chronic cough. Denies known sick contacts or additional acute medical complaints
Past History
Past History
ED Past Medical History: Other (autoimmune problems, currently being worked up for scleroderma), Other (Frequent UTIs) and Other (ADHD, anxiety, Raynaud's)
ED Past Surgical History: Other ([place] teeth)
Social History
Tobacco: Non-smoker
Alcohol: Occasional
Drug: None
Personal:
Living: with family
Employment: Employed
Family History
Family History: Other
Phy Exam
Physical Exam
Physical Exam:
General: Well-appearing, no clinical signs of dehydration, nontoxic and in no acute distress
HEENT: protecting airway, no obvious oropharyngeal swelling
Neck: appears supple, generalized tenderness with cervical lymphadenopathy
CV: Normal heart rate, regular rhythm
Resp: No accessory muscle use, no increased work of breathing, lungs clear to auscultation bilaterally
Abd: No distention
Extremities: No deformities, no swelling
Neuro: alert, no focal neurologic deficit
: deferred
Rectal: deferred
Psych: Normal affect
Skin: Intact
Course
Orders/Labs/Results
Orders:
Orders
07/02/25 14:20
Dexamethasone Pf [Decadron] 10 mg PO NOW STA
07/02/25 14:21
Test Result ONCE
07/02/25 14:22
CT Neck With Iv Contrast Urgent
Comment:
Reason For Exam: throat pain and swelling, hx epiglotittis
07/02/25 14:58
COVID-19 Antigen Urgent
Source: Nasal Swab
Complete Blood Count/With Diff Urgent
Comprehensive Metabolic Panel Urgent
HCG, Serum Qualitative Screen Urgent
Monotest Urgent
TSH Reflex To Free T4 Urgent
Influenza A+B Rapid Molecular Urgent
[place] Source: Nasal Swab
Specimen Description:
07/02/25 14:59
Rapid Strep Group A Urgent
[place] Source: Throat/Pharynx
Specimen Description:
Date Specimen was Collected: 07/02/25
Time Specimen was Collected: 14:54
07/02/25 16:25
CefTRIAXone [Rocephin] 1,000 mg IV NOW STA
Abnormal Lab Results
07/02/25
14:58
RBC 4.17 L 10^6/uL
(4.20-5.40)
Absolute Lymphs (auto) 0.9 L 10^3/uL
(1.2-3.4)
Absolute Monos (auto) 0.9 H 10^3/uL
(0.1-0.6)
Lymphocytes % 12.3 L %
(20.5-51.1)
Monocytes % 11.5 H %
(1.7-9.3)
Sodium 134 L mmol/L
(135-145)
Glucose 101 H mg/dl
(70-99)
07/02/25 14:58
07/02/25 14:58
Vital Signs
Initial and Last Documented VS:
Initial Vital Signs
Temp Pulse Resp BP Pulse Ox
98.4 F 120 18 184/120 99
07/02/25 13:45 07/02/25 13:45 07/02/25 13:45 07/02/25 13:45 07/02/25 13:45
Last Documented Vital Signs
Temp Pulse Resp BP Pulse Ox
98.5 F 94 13 140/85 99
07/02/25 15:00 07/02/25 15:00 07/02/25 15:00 07/02/25 15:00 07/02/25 16:00
MDM/Problems Addressed
MDM/Problems Addressed:
45-year-old female with history of lupus and scleroderma presenting for throat pain and difficulty swallowing. Vitals are significant for tachycardia which improved without intervention.
On exam patient is presently protecting airway. She does have some hoarseness to her voice, however no obvious oropharyngeal swelling. There is some tender cervical lymphadenopathy. Currently handling secretions. Concern again for pharyngitis.
Terry is also consideration. Will send mono and strep screen. Will also send COVID and flu. Given recent history of possible epiglottitis, we will proceed with CT neck imaging. Will administer Decadron for therapeutic relief.
14:20 - Patient's mono was negative. Viral swabs are negative. Strep is negative. Normal TSH. CT however shows again concern for acute epiglottitis. Will start antibiotics and discussed with ENT
*Pulse Oximetry
SaO2: 99
Oxygen Mode of Delivery: Room air
Patient hypoxic: no
*Critical Care Note
Total Time (30-74mins, 75-104mins- exclusive of procedures): Not Applicable
ED Attending Note
-
Portions of this chart may have been created with voice recognition software.� Occasional wrong word or��sound alike� substitutions may have occurred due to the inherent limitations of voice recognition software.
Discharge Plan
Departure
Prescriptions:
No Action
pantoprazole [Protonix] 40 mg tablet,delayed release (DR/EC)
40 mg PO DAILY Qty: 30 0RF
hydroxychloroquine [Plaquenil] 200 mg Tablet
200 mg PO BID Qty: 0 0RF
amoxicillin-pot clavulanate 875-125 mg Tablet
1 tab PO Q12 Qty: 15 0RF
Rx Instructions:
06/02/25 Last day for antibiotics
Saccharomyces boulardii 250 mg Capsule
250 mg PO BID Qty: 15 0RF
prednisone 10 mg Tablet
See Rx Instructions .ROUTE .COMPLEX Qty: 10 0RF
Rx Instructions:
Take By Mouth:
40 mg daily x1 day, 30 mg daily x1 day,
20 mg daily x1 day, 10 mg daily x1 day. then stop
Referrals:
Arun Kohler CRNP [Family Provider, Family Practice]
Interventions
Interventions:
*Risk Screen - Suicide Last Done: 07/02/25 13:45
*General Assessment Last Done: 07/02/25 13:45
*Neglect/Abuse Screening Last Done: 07/02/25 13:45
*ED COVID-19 Vaccine History Last Done: 07/02/25 13:45
*ED Influenza Vaccine History Last Done: 07/02/25 13:45
ED-EENT Assessment Last Done: 07/02/25 15:35
UT-Sigzpx-Qozbjnazqd Assessment Last Done: 07/02/25 15:35
ED- Pulmonary Assessment Last Done: 07/02/25 15:35
ED- Neurological Assessment Last Done: 07/02/25 15:35
ED Swallowing Screen Last Done: 07/02/25 15:24
Discharge Date and Time
Print Language: SETSWANA
--- NOTE | 2025-07-02 16:43 | HPS.HSE ---
Family Physician
-
Family Physician: SHAN Colindres
Chief Complaint
-
Throat pain, swallowing difficulty.
History of Present Illness
Patient is pleasant 45 years old with history of systemic lupus erythematosus, scleroderma, who was recently admitted to the hospital and discharged on May 26 with acute pharyngitis/epiglottitis seen by infectious disease and discharged on
Augmentin.
Patient was still with throat pain, difficulty swallowing, followed up with the ENT and recommended extended for another 2 weeks, but symptoms persist, slight improvement with prednisone.
Patient came to the ER today, CT shows:
1. ACUTE EPIGLOTTITIS with edema and thickening of the epiglottis and aryepiglottic folds narrowing the hypopharyngeal and laryngeal airway. Diagnostic possibilities are (1) ACUTE RECURRENT or RESIDUAL INFECTION, (2) severe inflammatory disease,
or (3) less likely lymphoma or squamous cell carcinoma.
2. Moderate bilateral cervical lymphadenopathy.
3. Severe bilateral atrophy of the submandibular glands.
4. Mild to moderate bilateral atrophy of the parotid glands.
Patient denies fever or chills, but patient admitted coughing with phlegm production.
Patient be admitted under hospitalist service.
Medical History
Past Medical History
Past Medical History: Reports Other
Additional Past Medical History:
Acute epiglottitis, scleroderma, lupus, Sjogren's
Past Surgical History: Reports Other
Additional Past Surgical History:
[place] teeth extraction
Social History
Tobacco: Non-smoker
Alcohol: Occasional (Patient drinks 3-5 drinks a week beer or whiskey's hours)
Personal:
Living: With Family ( [place])
Employment: Employed
Family History
Family History: Other (No family history CAD mother history of lupus from pneumonia age 57 also had brain tumor from lupus treatment)
Allergies / Home Medications
Allergies reflects when Allergies were last updated in [facility].
Home Medications with original date entered in [facility]
Allergy/Medication List:
Allergies
Allergy/AdvReac Type Severity Reaction Status Date / Time
vancomycin Allergy Mild Hives Verified 07/02/25 13:49
penicillin V Allergy Rash, Verified 07/02/25 13:49
Swelling,
itching;
tolerated
amoxicillin
Sulfa (Sulfonamide Allergy Hives Verified 07/02/25 13:49
Antibiotics)
Home Medications
hydroxychloroquine 200 mg tablet (Plaquenil) 200 mg PO BID rheumatological condition #0 tabs 08/27/24
pantoprazole 40 mg tablet,delayed release (Protonix) 40 mg PO DAILY Gastrointestinal issue #30 tabs 08/27/24
Saccharomyces boulardii 250 mg capsule 250 mg PO BID #15 caps 05/26/25
amoxicillin 875 mg-potassium clavulanate 125 mg tablet 1 tab PO Q12 #15 tabs 05/26/25
prednisone 10 mg tablet See Rx Instructions .Route .COMPLEX #10 tabs 05/26/25
Review of Systems
-
A 12 point ROS was completed and negative except as noted: Yes
Constitutional: Denies Fever, Weight Gain, Weight Loss, Fatigue or Sleep Disturbance
EENT: Reports Sore Throat and Mouth Swelling; Denies Tearing, Mouth Pain or Runny Nose
Respiratory: Reports Cough and Trouble Breathing; Denies Hemoptysis
Cardiac: Denies Chest Pain, Diaphoresis, Palpitations or Syncope
Abdomen/GI: Denies Abdominal Pain, Nausea, Vomiting, Diarrhea, Constipated, Bloody Stools or Black Stools
: Denies Dysuria, Frequency, Flank Pain, Incontinence, Difficulty Voiding, Urgency, Bleeding or Dark Urine
Musculoskeletal: Denies Joint Pain, Joint Swelling, Muscle Pain, Muscle Stiffness or Edema
Skin: Denies Itching or Rash
Neurological: Denies Dizzy, Headache, Weakness or Numbness
Endocrine: Denies Polyuria, Polydipsia or Temp Intolerance
Hematologic/Lymphatic: Denies Bleeding, Swollen Glands or Bruising
Psych: Reports Calm; Denies Depression, Anxiety or Panic Disorder
Physical Exam
Vital Signs
Vital Signs
Temp Pulse Resp BP Pulse Ox
98.5 F 94 13 140/85 99
07/02/25 15:00 07/02/25 15:00 07/02/25 15:00 07/02/25 15:00 07/02/25 16:00
Physical Exam
General: Well Developed, Well Nourished, No Apparent Distress, Comfortable and Good Appetite; No Pain, Chills or Sweats
HEENT: NormoCephalic, Moist mucous membranes, Atraumatic, Good Dentition, PERRLA, Nose Appears Normal, Ears Appear Normal and Pharyngeal Erythema
Respiratory: Clear
Cardiac: S1/S2 and Regular Rhythm
Breast: Deferred by me
GI: Soft, Non Tender, Non Distended and Normal Bowel Sounds
Genito-urinary: Deferred by me
Musculoskeletal: No Clubbing, No Cyanosis and No Edema
Skin: Warm; No Rash, Jaundice, Ulcers, Lesions or Decubitus Ulcers
Neuro: Awake, Alert, Oriented, AO x 3, No Motor Deficits, Nonfocal/grossly intact and Cranial Nerves Intact
Hematologic/Lymphatic: No Lymphadenopathy
Psych: Calm
Laboratory Results
-
07/02/25 14:58
07/02/25 14:58
Laboratory Results
Total Bilirubin 0.9 mg/dl (0.2-1.3) 07/02/25 14:58
AST 18 U/L (14-36) 07/02/25 14:58
ALT 11 U/L (0-35) 07/02/25 14:58
Alkaline Phosphatase 59 U/L (38-126) 07/02/25 14:58
Data Reviewed
-
Diagnostic Radiology: Report Reviewed by me
CT Scan: Report Reviewed by me
Medical Tests (Nuc Med, Echo, EKG etc): Report Reviewed by me
Lab Data: Labs Reviewed by me
Old Records: Reviewed
Impression/Plan
-
IMPRESSION:
45 years old with history of systemic lupus erythematosus, scleroderma, who was recently admitted to the hospital and discharged on May 26 with acute pharyngitis/epiglottitis seen by infectious disease and discharged on Augmentin.� Came with
throat pain, difficulty swallowing, CT shows acute epiglottitis, started on Unasyn and dexamethasone, ID consult
Assessment/plan:
Acute epiglottitis/recurrent
Failed oral antibiotics as outpatient.
Will be admitted under hospitalist service Medr bed.
Start Unasyn/dexamethasone.
Infectious ease consult.
Pain control
Systemic lupus erythematosus/scleroderma.
Continue Plaquenil
GERD.
Continue PPI
Mild hyponatremia.
Not clinically significant
CODE STATUS: Full code
DVT prophylaxis: Lovenox
Diet: Regular diet
Disposition: Unasyn/dexamethasone.
Total time spent on today's encounter was 75 minutes which included time spent in counseling the patient/family regarding diagnosis and treatment plan as listed above, goals of care, and symptom management. Case was discussed with nursing staff,
specialists, and care coordinators/case management. All labs and imaging personally reviewed by me. Remainder the time spent in detailed review of previous records, lab data, imaging, and other medical provider documentation.
[2025-07-02] MEDS: UNASYN IV ×2 (17:49→23:00)
--- NOTE | 2025-07-02 17:53 | CM ---
CM reviewed chart and spoke with patient at ED bedside
[place] with spouse and stepson 2 [place]
Independent with ADLs no DME
PCP Dr. Solo Cuevas
RX plan yes
Pharmacy [facility] in [place]
no hx of VN no hx of SNF
Seeing ENT doctor for acute epiglottis
Anticipate to go home when ready
CM will continue to follow up for any dcp needs
[2025-07-02 18:23] VITALS: BP 153/100; BMI 29.4
[2025-07-02] MEDS: LOVENOX 40 MG SC (18:36)
[2025-07-02] MEDS: FLORASTOR 250 MG PO (19:52)
[2025-07-02] MEDS: PLAQUENIL 200 MG PO (19:52)
[2025-07-02 19:53] VITALS: BP 146/90
[2025-07-02] MEDS: ROBITUSSIN DM 5 ML PO (20:37)
[2025-07-02] MEDS: DECADRON 4 MG IV (20:43)
[2025-07-02 23:27] VITALS: BP 128/83
[2025-07-03] MEDS: DECADRON 4 MG IV ×4 (03:09→21:59)
[2025-07-03] MEDS: UNASYN IV ×4 (05:35→23:15)
[2025-07-03 07:12] VITALS: BP 161/97
--- NOTE | 2025-07-03 07:59 | W.PN.HOSP.TC ---
Today's Communication/Plan
-
See plan
Assessment / Plan
Assessment / Plan
Physical Exam
General: Not in acute distress
HEENT: Normocephalic, Moist mucous membranes
Respiratory: Clear to Auscultation Bilaterally
Cardiac: S1/S2 and Regular Rhythm
GI: Soft, Non Tender, Non Distended and Normal Bowel Sounds
Musculoskeletal: No Cyanosis and No Edema
Skin: Warm. Dry.
Neuro: Awake, Alert, Oriented, AO x 3, No Motor Deficits, Nonfocal/grossly intact and Cranial Nerves Intact
Psych: Calm
Assessment/Plan
45 years old with history of systemic lupus erythematosus, scleroderma, who was recently admitted to the hospital and discharged on May 26 with acute pharyngitis/epiglottitis seen by infectious disease and discharged on Augmentin.
Patient was still with throat pain, difficulty swallowing, followed up with the ENT and recommended extended for another 2 weeks, but symptoms persist, slight improvement with prednisone.
Patient came to the ER today, CT shows:
1. ACUTE EPIGLOTTITIS with edema and thickening of the epiglottis and aryepiglottic folds narrowing the hypopharyngeal and laryngeal airway. Diagnostic possibilities are (1) ACUTE RECURRENT or RESIDUAL INFECTION, (2) severe inflammatory disease,
or (3) less likely lymphoma or squamous cell carcinoma.
2. Moderate bilateral cervical lymphadenopathy.
3. Severe bilateral atrophy of the submandibular glands.
4. Mild to moderate bilateral atrophy of the parotid glands.
Patient denies fever or chills, but patient admitted coughing with phlegm production.
Patient be admitted under hospitalist service.
IMPRESSION:
45 years old with history of systemic lupus erythematosus, scleroderma, who was recently admitted to the hospital and discharged on May 26 with acute pharyngitis/epiglottitis seen by infectious disease and discharged on Augmentin.� Came with
throat pain, difficulty swallowing, CT shows acute epiglottitis, started on Unasyn and dexamethasone, ID consult
Assessment/plan:
Acute epiglottitis/recurrent
Failed oral antibiotics as outpatient.
Continue Unasyn/dexamethasone.
Infectious disease consult.
Pain control
Per my [place] [facility] communication with Dr. Price, Dr. Price saw patient, she keeps getting this recurrent pharyngitis of unknown ideology, he is not sure it is infectious, he thinks she can be discharged home tomorrow on 10 days of oral Augmentin.
However, would keep her on a higher dose of oral steroids and taper her down slowly. She�s going to see Dr. Price next week and then she needs to schedule a follow up with her therapy assistant. This is likely an auto inflammatory process, causing
the recurrent inflammation. I will leave a consult with more detailed notes.
Systemic lupus erythematosus/scleroderma.
Continue Plaquenil
GERD.
Continue PPI
Mild hyponatremia.
Not clinically significant
CODE STATUS: Full code
DVT prophylaxis: Lovenox
Diet: Regular diet
Disposition: Unasyn/dexamethasone.
Anticipated Discharge: Within 24 hours
Subjective/Interval History
-
Date of Service: July 03, 2025
Patient was seen and examined. She reported that her shortness of breath is better today, although her throat is still bothering her.
Objective Data
-
Labs:
Laboratory Results
07/03/25
06:00
WBC Pending
Hgb Pending
Hct Pending
Plt Count Pending
Sodium Pending
Potassium Pending
Chloride Pending
Carbon Dioxide Pending
BUN Pending
Creatinine Pending
Glucose Pending
Calcium Pending
Vital Signs:
Vital Signs
Temp Pulse Resp BP Pulse Ox
98.0 F 90 18 128/83 98
07/02/25 23:27 07/02/25 23:27 07/02/25 23:27 07/02/25 23:27 07/02/25 23:27
I&O
07/02/25 07/03/25 07/04/25
06:59 06:59 06:59
Intake Total 240 / 240
Balance 240 / 240
[2025-07-03] MEDS: FLORASTOR 250 MG PO (08:00)
[2025-07-03] MEDS: PROTONIX 40 MG PO (08:00)
[2025-07-03] MEDS: PLAQUENIL 200 MG PO ×2 (08:00→20:21)
[2025-07-03 08:44] LABS: Hematocrit 36.8 % (37.0-47.0); Hemoglobin 12.9 g/dL (12.0-16.0); Mean Corp Hgb Conc. 35.1 g/dL (33.0-37.0); Mean Corpuscular Volume 87.0 fL (81.0-99.0); Platelet Count 292 10^3/uL (130-400); Red Cell Dist. Width 12.5 % (11.5-14.5)
[2025-07-03 08:55] LABS: Blood Urea Nitrogen 9 mg/dl (7-17); Calcium 9.3 mg/dl (8.4-10.2); Carbon Dioxide 18 mmol/L (22-30); Chloride 109 mmol/L (98-107); Estimated Creatinine Clearance 124 ml/min; Glucose 181 mg/dl (70-99); Magnesium 1.8 mg/dl (1.6-2.3); Potassium 4.4 mmol/L (3.5-5.1); Sodium 138 mmol/L (135-145); eGFR > 60.00
--- NOTE | 2025-07-03 12:31 | CON.ID ---
Consultation
-
Date/Time Consultation Requested: 07/02/2025 1816
Date/Time Consultation Performed: 06/29/2025 1231
Requesting Provider:
Performing Provider: Dr. Hart
Reason for Consultation: Epiglottitis
Chief Complaint / Past History
Chief Complaint
Sore throat and cough with phlegm
History of Present Illness
Lashanda Salomon is a 45-year-old female being evaluated at the request of Dr. Ruby regarding epiglottitis. History is obtained from chart review, along with patient interview.
The patient is known to the Infectious Disease service, having been seen in mid May for neck discomfort. She has a known history of lupus currently on Plaquenil and Rituxan(q6 month)(started in February 2025); previously was on Plaquenil and
CellCept with steroids. She has been dealing for approximately 4 months with sore throat with cough. She has been on previous courses of levofloxacin (21-day course) prior to admission. She presented to the ER in mid May because she felt
her throat was closing and was having difficulty swallowing. Imaging at that time showed inflammation in the neck with possible thickening of the epiglottis. During her hospital course acute epiglottitis was ruled out by ENT and she was diagnosed
with pharyngitis and ultimately discharged on a course of Augmentin through 06/02.
She reports that at the time of discharge she was feeling 'great', and felt well for approximately a week thereafter. Subsequently, she had returned of symptomatology. She saw her PCP who referred her onto ENT, who extended her course of
antibiotics for an additional 2 weeks. Despite antibiotic therapy, she continued to feel less and less well.
Earlier this week she developed extreme fatigue, increased cough, rhinorrhea, and progressive pharyngitis. She notes she overall felt unwell.
She presents back to the ER yesterday for recurrence of throat pain and difficulty swallowing which increased over the prior 24 hours. She feels like her voice is more hoarse in nature. No recent fevers. Since admission, she reports that she is
feeling better this a.m.
Past History
Additional Past Medical History:
Lupus
Scleroderma
Raynaud's syndrome
Sjogren syndrome
Hx UTIs
Additional Past Surgical History:
Tooth extraction
Allergy History:
penicillin V Allergy (Verified 07/02/25 13:49)
Rash, Swelling, itching; tolerated amoxicillin and Unasyn
Sulfa (Sulfonamide Antibiotics) Allergy (Verified 07/02/25 13:49)
Hives
vancomycin Allergy (Verified 07/02/25 17:33)
Hives
Medications Reviewed: Yes
Current Antibiotics:
Unasyn
Social History
Tobacco: Non-Smoker
Alcohol: Occasional
Drug: None
Personal:
Living: With Family
Employment: Employed
Family History
Family History: Other (Mother: Lupus)
Review of Systems
Vital Signs
Temp Pulse Resp BP Pulse Ox
98.3 F 93 18 161/97 98
07/03/25 07:12 07/03/25 07:12 07/03/25 07:12 07/03/25 07:12 07/03/25 09:00
Physical Exam
Physical Exam
Constitutional: No Acute Distress, Comfortable and Non-toxic
Eyes: No Conjunctival Hemorrhage and Sclera Anicteric
Pharynx: Other (Posterior pharynx could not be visualized.)
Oral: No Thrush
Cardiovascular: S1/S2; Negative S3/S4
Pulmonary: Clear and Non Labored; Negative Wheezes
Gastrointestinal: Soft, Non Tender and Non Distended
Neurological: Awake and Alert
Psychological: Calm
Lab / Diagnostic Study Results
07/03/25 08:00
07/03/25 08:00
Abs Immat Gran (auto) 0.0 10^3/uL (0-0.05) 07/02/25 14:58
Absolute Neuts (auto) 5.3 10^3/uL (1.4-6.5) 07/02/25 14:58
Absolute Lymphs (auto) 0.9 10^3/uL (1.2-3.4) L 07/02/25 14:58
Absolute Monos (auto) 0.9 10^3/uL (0.1-0.6) H 07/02/25 14:58
Absolute Basos (auto) 0.0 10^3/uL (0-0.2) 07/02/25 14:58
Immature Gran % 0.3 % (0-0.5) 07/02/25 14:58
Neutrophils % 71.5 % (42.2-75.2) 07/02/25 14:58
Lymphocytes % 12.3 % (20.5-51.1) L 07/02/25 14:58
Monocytes % 11.5 % (1.7-9.3) H 07/02/25 14:58
Eosinophils % 4.1 % (0-6) 07/02/25 14:58
Basophils % 0.3 % (0-2) 07/02/25 14:58
Microbiology Results
Micro:
07/02/25 14:59 Streptococcus Screen ([place]) - Preliminary
Throat/Pharynx Culture in Progress
Streptococcus Rapid Screen - Final
Rapid Strep Screen (Group A) Negative
07/02/25 14:58 Influenza Types A & B ([place]) - Final
Nasal Swab Negative for Influenza A & B, NAAT
Negative results must be combined with clinical observations
and patient history.
Nucleic Acid Amplification test (NAAT)performed on the
[employer] platform.
Imaging:
07/02/2025 CT neck with IV contrast: The epiglottis and aryepiglottic folds are moderately to severely thickened with surrounding hypopharyngeal and laryngeal edema which narrows the hypopharyngeal and laryngeal airway. There is thickening of the
prevertebral soft tissues in the soft tissues in the retropharyngeal space. There is edema and nonloculated fluid to the left of the hyoid bone and thyroid cartilage extending along the anterior margin of the left carotid space which appears similar
to the prior exam. The appearance is consistent with acute epiglottitis. Also noted is moderate bilateral cervical lymphadenopathy along with severe bilateral atrophy of the submandibular glands. Please see full dictation for additional detail.
Assessment / Plan
Acute/recurrent epiglottitis
Lupus
Scleroderma
Raynaud's syndrome
Sjogren syndrome
Hx UTIs
Recommendations:
At present, not clear whether there is an underlying infectious process or solely an inflammatory one.
Quick improvement from yesterday may suggest that steroids are playing a bigger role in symptomatology improvement rather than antibiotics at this point.
Await further input from ENT.
Await pending culture data.
Continue Unasyn for now.
Further recommendations as additional data is returned.
[2025-07-03 15:14] VITALS: BP 140/98
--- NOTE | 2025-07-03 15:54 | W.CON.OTO ---
Otolaryngology Consult
Chief Complaint
Throat pain and shortness of breath with difficulty swallowing
History of Present Illness
Lashanda Salomon is a 45-year-old female well-known to me from prior hospitalizations and as an outpatient. She has a history of recurrent pharyngitis that has recently been treated with multiple rounds of antibiotics and steroids. She was
previously admitted to [facility] in May. Prior to that she had been treated with a number of antibiotics with worsening symptoms. In May she was found to have significant cervical lymphadenopathy and thickening of her
epiglottis. She was treated with antibiotics and steroids and improved. She was discharged home on a long course of antibiotics and some further oral steroids. Slowly her symptoms did improve, however it is unclear whether this is due to the
antibiotic or the steroid. She recently completed a long course of Augmentin. She was feeling well but earlier this week began to feel increasing throat pain and tightness. Yesterday she felt like she was having difficulty swallowing and
breathing. Therefore she came to the emergency room for evaluation. CT scan again showed some thickening of her epiglottis. She also had some significant lymphadenopathy. She was treated with intravenous steroids and antibiotics. Today she
states she is feeling better. She no longer has any difficulty breathing. Her throat pain has decreased. She is able to eat and swallow as normal. She denies any fevers or chills. She also denies any cough or phlegm.
Medical History
Additional Past Medical History:
Recurrent pharyngitis, scleroderma, lupus, Sjogren's
Additional Past Surgical History:
[place] teeth extraction
Patient Allergies:
Allergies
Allergy/AdvReac Type Severity Reaction Status Date / Time
Sulfa (Sulfonamide Allergy Hives Verified 07/02/25 13:49
Antibiotics)
Physical Exam
Vitals / Labs:
Vital Signs
Temp 98.3 F 07/03/25 15:14
Temp route: Oral 07/03/25 15:14
Pulse 95 07/03/25 15:14
Resp Rate 16 07/03/25 15:14
Blood pressure 140/98 07/03/25 15:14
Blood pressure extremity used: Left upper arm 07/03/25 15:14
Position: Lying 07/03/25 15:14
MAP (cuff-[place] Monitor) 102 07/02/25 15:00
SaO2 97 07/03/25 15:14
Oxygen Mode of Delivery Room air 07/03/25 15:14
Can the patient verbally communicate their pain? Yes 07/03/25 09:00
Actual Weight 80.104 kg 07/02/25 18:23
Body Mass Index (BMI) 29.4 07/02/25 18:23
Lab Results
07/03/25 08:00
07/03/25 08:00
Exam:
Patient is awake, alert, oriented, in no acute distress.
Afebrile, vital signs stable.
Head normocephalic and atraumatic.
Ears clear and normal bilaterally.
Nasal cavity clear anteriorly.
Oral cavity oropharynx unremarkable. No erythema or exudate present.
Neck with moderate, tender jugulodigastric lymphadenopathy present bilaterally.
Flexible fiberoptic laryngoscopy was performed at the bedside. The scope was easily passed to the left nasal cavity. The nasopharynx is clear. The oral cavity and oropharynx were unremarkable. The base of tongue, vallecula, aryepiglottic folds,
arytenoids, piriform sinuses, and postcricoid area were all within normal limits. There was some mild erythema and thickening of the epiglottis but no significant edema noted. The true and false vocal folds were unremarkable. The vocal folds were
mobile bilaterally. The subglottis appeared to be grossly clear. The airway was widely patent. No mucus or purulent phlegm was present.
Assessment / Plan
Lashanda Salomon is a 45-year-old female with recurrent pharyngitis of questionable etiology. She does respond to medication. However it is unclear whether or not she is responding to the steroid or the antibiotic. I am not sure that there is a
true infection present. I feel that her recurrent pharyngitis is most likely inflammatory in nature, likely due to her history of autoimmune disease. She is feeling much better today after being treated with steroids and antibiotics overnight.
Would recommend continued antibiotic therapy for 10 days. Patient can be discharged on Augmentin orally. In addition I would recommend that she get a longer course of oral steroids. She should be discharged on prednisone 60 mg for 5 days, then 50
mg for 5 days, then 40 mg for 5 days, then 30 mg until seen by rheumatology. She has an appointment to see me on Sunday in the office which she can keep. She will call her property portfolio officer to schedule close follow-up. From an ENT perspective she
can likely be discharged home tomorrow as long as she remains medically stable.
Data Reviewed
CT Scan: Image Personally Visualized and interpreted ( CT scan of neck reviewed. Thickening of epiglottis. Consistent with findings on CT scan from 1 month ago. Enlarged, bilateral jugulodigastric lymphadenopathy.) and Discussed with Patient
Lab Data: Labs Reviewed by me ( White blood cell count within normal limits. Rapid strep test negative. Influenza A and B as well.)
[2025-07-03] MEDS: LOVENOX 40 MG SC (17:50)
[2025-07-03] MEDS: PEPCID 20 MG PO (21:59)
[2025-07-03 23:00] VITALS: BP 137/78
[2025-07-04] MEDS: DECADRON 4 MG IV ×2 (04:58→09:36)
[2025-07-04] MEDS: UNASYN IV ×2 (05:00→12:29)
--- NOTE | 2025-07-04 08:14 | W.PN.HOSP.TC ---
Today's Communication/Plan
-
Discharge today
Assessment / Plan
Assessment / Plan
Physical Exam
General: Not in acute distress
HEENT: Normocephalic, Moist mucous membranes
Respiratory: Clear to Auscultation Bilaterally
Cardiac: S1/S2 and Regular Rhythm
GI: Soft, Non Tender, Non Distended and Normal Bowel Sounds
Musculoskeletal: No Cyanosis and No Edema
Skin: Warm. Dry.
Neuro: Awake, Alert, Oriented, AO x 3, No Motor Deficits, Nonfocal/grossly intact and Cranial Nerves Intact
Psych: Calm
Assessment/Plan
45 years old with history of systemic lupus erythematosus, scleroderma, who was recently admitted to the hospital and discharged on May 26 with acute pharyngitis/epiglottitis seen by infectious disease and discharged on Augmentin.
Patient was still with throat pain, difficulty swallowing, followed up with the ENT and recommended extended for another 2 weeks, but symptoms persist, slight improvement with prednisone.
Patient came to the ER today, CT shows:
1. ACUTE EPIGLOTTITIS with edema and thickening of the epiglottis and aryepiglottic folds narrowing the hypopharyngeal and laryngeal airway. Diagnostic possibilities are (1) ACUTE RECURRENT or RESIDUAL INFECTION, (2) severe inflammatory disease,
or (3) less likely lymphoma or squamous cell carcinoma.
2. Moderate bilateral cervical lymphadenopathy.
3. Severe bilateral atrophy of the submandibular glands.
4. Mild to moderate bilateral atrophy of the parotid glands.
Patient denies fever or chills, but patient admitted coughing with phlegm production.
Patient be admitted under hospitalist service.
IMPRESSION:
45 years old with history of systemic lupus erythematosus, scleroderma, who was recently admitted to the hospital and discharged on May 26 with acute pharyngitis/epiglottitis seen by infectious disease and discharged on Augmentin.� Came with
throat pain, difficulty swallowing, CT shows acute epiglottitis, started on Unasyn and dexamethasone, ID consult
Assessment/plan:
Acute epiglottitis?
Recurrent pharyngitis of questionable etiology -- more likely inflammatory due to history of autoimmune disease versus infectious
Failed oral antibiotics as outpatient.
Continue antibiotics for 10 days
On discharge: prednisone 60 mg for 5 days, then 50 mg for 5 days, then 40 mg for 5 days, then 30 mg until seen by rheumatology
Patient has a appointment on 07/07/25 in the office which she can keep
Patient should contact her certified welder to schedule close follow-up
Infectious disease consult.
Pain control
Per my [place] Text communication with Dr. Price, Dr. Price saw patient, she keeps getting this recurrent pharyngitis of unknown ideology, he is not sure it is infectious, he thinks she can be discharged home tomorrow on 10 days of oral Augmentin.
However, would keep her on a higher dose of oral steroids and taper her down slowly. She�s going to see Dr. Price next week and then she needs to schedule a follow up with her certified welder. This is likely an auto inflammatory process, causing
the recurrent inflammation. I will leave a consult with more detailed notes.
-Confirmed with Dr. Price that patient can take Robitussin DM
Systemic lupus erythematosus/scleroderma.
Continue Plaquenil
GERD.
Continue PPI
Mild hyponatremia.
Not clinically significant
CODE STATUS: Full code
DVT prophylaxis: Lovenox
Diet: Regular diet
More than 30 minutes spent in discharge including
Final examination of the patient
Summarizing hospital stay
Instructions for continuing care to all relevant caregivers
Preparation of discharge records, prescriptions, and referral forms
Total time spent (in minutes): 42
Anticipated Discharge: Today
Subjective/Interval History
-
Date of Service: July 04, 2025
Patient was seen and examined. She reported a lot better, still with significant cough.
Objective Data
-
Labs:
Laboratory Results
07/04/25
06:00
WBC Pending
Hgb Pending
Hct Pending
Plt Count Pending
Sodium Pending
Potassium Pending
Chloride Pending
Carbon Dioxide Pending
BUN Pending
Creatinine Pending
Glucose Pending
Calcium Pending
Vital Signs:
Vital Signs
Temp Pulse Resp BP Pulse Ox
97.9 F 80 18 137/78 98
07/03/25 23:00 07/03/25 23:00 07/03/25 23:00 07/03/25 23:00 07/03/25 23:00
I&O
07/03/25 07/04/25 07/05/25
06:59 06:59 06:59
Intake Total 240 / 240 800 / 800
Balance 240 / 240 800 / 800
[2025-07-04 09:16] VITALS: BP 150/98
[2025-07-04 09:17] LABS: Hematocrit 37.0 % (37.0-47.0); Hemoglobin 12.9 g/dL (12.0-16.0); Mean Corp Hgb Conc. 34.9 g/dL (33.0-37.0); Mean Corpuscular Volume 88.1 fL (81.0-99.0); Platelet Count 307 10^3/uL (130-400); Red Cell Dist. Width 12.9 % (11.5-14.5)
[2025-07-04] MEDS: PLAQUENIL 200 MG PO (09:36)
[2025-07-04] MEDS: PROTONIX 40 MG PO (09:36)
[2025-07-04] MEDS: FLUSH (NSS) 1 FLUSH IV (09:37)
[2025-07-04 11:57] LABS: Blood Urea Nitrogen 12 mg/dl (7-17); Calcium 9.4 mg/dl (8.4-10.2); Carbon Dioxide 24 mmol/L (22-30); Chloride 109 mmol/L (98-107); Estimated Creatinine Clearance 124 ml/min; Glucose 143 mg/dl (70-99); Potassium 4.2 mmol/L (3.5-5.1); Sodium 135 mmol/L (135-145); eGFR > 60.00
--- NOTE | 2025-07-04 14:30 | W.DCSUMMARY ---
Discharge Summary
Discharge Data
Date of Admission: 07/02/25
Date of Discharge: 07/04/25
Total time spent discharging patient (in min): 42
-
Pending Results: No
Hospital Course
45 year old female with past medical history of systemic lupus erythematosus and scleroderma, who was recently admitted to the hospital and discharged on May 26, 2025 with acute pharyngitis/epiglottitis seen by infectious disease and
discharged on Augmentin. Patient was still having throat pain, difficulty swallowing and followed up with the ENT and recommended extended treatment for additional 2 weeks, but symptoms persisted, slight improvement with prednisone. CT Neck with
intravenous contrast showed, as per radiologist's report, 'Acute epiglotittis with edema and thickening of the epiglottis and aryepiglottic folds narrowing the hypopharyngeal and laryngeal airway. Diagnostic possibilities are (1) ACUTE RECURRENT or
RESIDUAL INFECTION, (2) severe inflammatory disease, or (3) less likely lymphoma or squamous cell carcinoma; 2. Moderate bilateral cervical lymphadenopathy; 3. Severe bilateral atrophy of the submandibular glands; 4. Mild to moderate bilateral
atrophy of the parotid glands.' Patient was started on Unasyn and Dexamethasone and patient's symptoms gradually improved. Infectious Disease and ENT physicians were consulted. Patient's symptoms were thought to be more autoimmune inflammatory but
less likely infectious. ENT physician recommended continued antibiotic therapy for 10 days with Augmentin, and longer course of steroids with Prednisone 60 mg daily for 5 days, then 50 mg daily for 5 days, then 40 mg daily for 5 days, then 30 mg
daily, until seen by rheumatology. She would need to follow-up with ENT on 07/07/25 and also follow-up with microfilm processor.
Discharge Plan
-
Patient Disposition: Home (Routine Discharge)
Discharge Diagnosis/Procedures: Acute epiglottitis?
Recurrent pharyngitis of questionable etiology -- more likely inflammatory due to history of autoimmune disease versus infectious
Systemic lupus erythematosus/scleroderma
Gastroesophageal Reflux Disease
Mild hyponatremia

CT Neck with intravenous contrast (as per radiologist's report):
'IMPRESSION:
1. ACUTE EPIGLOTTITIS with edema and thickening of the epiglottis and aryepiglottic folds narrowing the hypopharyngeal and laryngeal airway. Diagnostic possibilities are (1) ACUTE RECURRENT or RESIDUAL INFECTION, (2) severe inflammatory disease,
or (3) less likely lymphoma or squamous cell carcinoma.
2. Moderate bilateral cervical lymphadenopathy.
3. Severe bilateral atrophy of the submandibular glands.
4. Mild to moderate bilateral atrophy of the parotid glands.'
Condition: Good
Diet: As tolerated
Activity: As tolerated
Activity Restrictions/Additional Instructions:
Follow-up with Dr. Price (ENT physician) on 07/07/25.
You should contact your microfilm processor to schedule close follow-up.
You can take Robitussin DM for cough (this was confirmed with Dr. Price)
Referrals:
Arun Kohler CRNP [Family Provider, [facility]] - in less than 1 week
Referral Note: Hospitalization Follow-Up
Additional Discharge Medication Instructions: You need to take Prednisone 60 mg daily for 5 days, then 50 mg daily for 5 days, then 40 mg daily for 5 days, then 30 mg daily until you see your microfilm processor.
Amoxicillin-Clavulanate is a new antibiotic medication.
Prescriptions:
New
amoxicillin-pot clavulanate 875-125 mg tablet
1 tab PO Q12H 10 Days Qty: 20 0RF
prednisone 10 mg tablet
See Rx Instructions .ROUTE .COMPLEX Qty: 120 0RF
Rx Instructions:
60 mg daily x5 days; 50 mg/day x5 days; 40 mg/day x5 days; then 30 mg daily
Continued
pantoprazole [Protonix] 40 mg tablet,delayed release (DR/EC)
40 mg PO DAILY Qty: 30 0RF
hydroxychloroquine [Plaquenil] 200 mg Tablet
200 mg PO BID Qty: 0 0RF
Saccharomyces boulardii 250 mg Capsule
250 mg PO BID Qty: 15 0RF
Discontinued
amoxicillin-pot clavulanate 875-125 mg Tablet
1 tab PO Q12 Qty: 15 0RF
Rx Instructions:
06/02/25 Last day for antibiotics
prednisone 10 mg Tablet
See Rx Instructions .ROUTE .COMPLEX Qty: 10 0RF
Rx Instructions:
Take By Mouth:
40 mg daily x1 day, 30 mg daily x1 day,
20 mg daily x1 day, 10 mg daily x1 day. then stop
Discharge Orders:
Discharge Patient (As Directed); Ordered 07/04/25
Ordered By: Supa Jimenez
Discharge Date and Time
Discharge Date/Time: 07/04/25 15:29
Print Language: DIVEHI
[2025-07-04 15:08] VITALS: BP 149/94
--- NOTE | 2025-07-04 15:13 | CM ---
Per Nursing, discharged to home; drove self home; no needs
== END 2025-07-04 15:29 | disposition home or self-care (01) | DRG 153 ==
LOC: 4 WEST ACU 17:37
PROVIDERS: ADMITTING PHYSICIAN General Practice; ATTENDING PHYSICIAN Hospitalist; CONSULT PHYSICIAN Internal Medicine Infectious Disease; CONSULT PHYSICIAN Otolaryngology; EMERGENCY PHYSICIAN Student in an Organized Health Care Education/Training Program; FAMILY PHYSICIAN Nurse Practitioner Family
DX: J05.10 Acute epiglottitis without obstruction (principal); E87.1 Hypo-osmolality and hyponatremia; R13.10 Dysphagia, unspecified; M32.9 Systemic lupus erythematosus, unspecified; M34.9 Systemic sclerosis, unspecified; Z88.1 Allergy status to other antibiotic agents; Z88.2 Allergy status to sulfonamides; I73.00 Raynaud's syndrome without gangrene; K21.9 Gastro-esophageal reflux disease without esophagitis; M35.00 Sjogren syndrome, unspecified; Z87.440 Personal history of urinary (tract) infections; Z11.52 Encounter for screening for COVID-19
CPT/HCPCS: 70491; 80048; 80053; 83735; 84443; 84703; 85025; 85027; 86308; 87070; 87502; 87811; 87880; 96365; 96375; 99285; Q9967

== ENCOUNTER → 2025-08-21 08:13 | Outpatient (REF) | payer OTHER, SELFPAY | LOC: RST 08:13 | PROVIDERS: ATTENDING PHYSICIAN Nurse Practitioner Family | DX: R13.10 Dysphagia, unspecified (principal) | CPT/HCPCS: 74230; 92611 ==

== ENCOUNTER → 2025-08-28 15:47 | Outpatient (REF) | payer OTHER, SELFPAY | LOC: RAD 15:47 | PROVIDERS: ATTENDING PHYSICIAN Internal Medicine; FAMILY PHYSICIAN Nurse Practitioner Family | DX: M34.9 Systemic sclerosis, unspecified (principal) | CPT/HCPCS: 71250 ==